=== PATIENT | female | born 1950 | race Caucasian/White ===

== ENCOUNTER 2017-10-15 17:28 | Inpatient (IN) | payer MEDICARE, MEDICAID ==
[~2017-10-15] VITALS: Ht 162.6 cm; Wt 77.6 kg
[~2017-10-15 17:28] MED LIST: LISINOPRIL2.5 MG ORAL; NITRO-BID1 GM TOPIC
[2017-10-15 18:43] LABS: HEMATOCRIT 39.4 % (37.0-47.0); HEMOGLOBIN 10.7 G/DL (12.0-16.0); MEAN CORPUSCULAR VOLUME 115 FL (80-99); PLATELET COUNT 233 K/UL (150-450); RED BLOOD COUNT 3.42 M/UL (4.20-5.40); RED CELL DISTRIBUTION WIDTH 18.6 % (11.6-14.8); WHITE BLOOD COUNT 7.8 K/UL (4.8-10.8)
[2017-10-15 18:44] VITALS: BP 118/57
[2017-10-15 18:59] LABS: ANION GAP 4 mmol/L (5-15); BLOOD UREA NITROGEN 18 mg/dL (7-18); CALCIUM 7.4 MG/DL (8.5-10.1); CARBON DIOXIDE 28 MMOL/L (21-32); CHLORIDE 107 MMOL/L (98-107); POTASSIUM 4.8 MMOL/L (3.5-5.1); SODIUM 139 MMOL/L (136-145)
[2017-10-15 19:13] LABS: ALANINE AMINOTRANSFERASE < 6 U/L (12-78); ALBUMIN 1.5 G/DL (3.4-5.0); ALBUMIN/GLOBULIN RATIO 0.3 (1.0-2.7); ALKALINE PHOSPHATASE 139 U/L (46-116); ASPARTATE AMINO TRANSFERASE 12 U/L (15-37); BILIRUBIN,TOTAL 0.2 MG/DL (0.2-1.0); CKMB < 0.5 NG/ML (0.0-3.6); CREATINE KINASE 20 U/L (26-308)
[2017-10-15 19:47] VITALS: BP 149/60
--- NOTE | 2017-10-15 21:09 | Emergency Room Report ---
History of Present Illness General Chief Complaint: Altered Level of Consciousness Source: Medical Record, EMS Present Illness HPI 67-year-old female ED for evaluation. at bedside states that patient is altered x1 day. Patient has history of end-stage renal disease and gets dialysis. Last dialysis session was yesterday. states that this has happened to the patient before and sometimes she needs a "breathing tube". Patient is on home oxygen. Denies history of COPD. Patient is unable to provide any additional history at this time. Daughter aggravating living factors. No other associated symptoms Allergies: Coded Allergies: SULFA (SULFONAMIDE ANTIBIOTICS) (Verified Allergy, Unknown, 10/06/11) Uncoded Allergies: SULFA (Allergy, Unknown, 10/15/17) Patient History Past Medical History: HTN, CVA/TIA, psych hx, renal disease, dialysis Past Surgical History: none Pertinent Family History: none Social History: Denies: smoking, alcohol use, drug use Now: No Immunizations: UTD Reviewed Nursing Documentation: PMH: Agreed, PSxH: Agreed Nursing Documentation-PMH Past Medical History: No History, Except For Hx Cardiac Problems: Yes - CVA/Stroke Hx Hypertension: Yes Hx Diabetes: Yes History Of Psychiatric Problem: Yes Hx Seizures: Yes Review of Systems All Other Systems: negative except mentioned in HPI Physical Exam Vital Signs Date Time Temp Pulse Resp B/P (MAP) Pulse Ox O2 Delivery O2 Flow Rate FiO2 10/15/17 17:23 99.0 76 18 93/44 99 Room Air 10/15/17 18:30 30 Sp02 EP Interpretation: reviewed, normal General Appearance: no apparent distress, lethargic Head: normocephalic ENT: normal ENT inspection Neck: normal inspection Respiratory: chest non-tender, lungs clear, normal breath sounds, speaking full sentences Cardiovascular #1: regular rate, rhythm, no edema Gastrointestinal: normal inspection Rectal: deferred Genitourinary: no CVA tenderness Musculoskeletal: normal inspection Neurologic: other - lethargic Psychiatric: other - lethargic Skin: normal inspection Lymphatic: normal inspection Procedures Critical Care Time Critical Care Time i. I feel this is a highly complex case requiring extensive working including EKG/Rhythm strip, Xray/CT/US, Blood/urine lab work, repeat exams while in ED, and administration of strong opiates/narcotics for pain control, admission to hospital or close patient follow up. Total time: 30 min bedside evaluation and treatment excludes procedures (EKG). Reason for critical care: hypercapnia, AMS Possible complications: hypotension, hypertension, SD, shock, arrhythmias, metabolic acidosis, end organ damage, respiratory failure. Interventions: Labs, EKG, chest x-ray, CT head, ABG, BiPAP Course: Patient brought in with altered mental status. History of end-stage renal disease. O2 sats low. ABG shows hypercapnia. Patient started on BiPAP. Repeat ABG shows improvement. Chest x-ray shows significant pleural effusion and cardiomegaly. abx given. Consultations: nursing staff, EMS, family Performed by: Dr Sands Tolerated well condition = critical j. because of unstable vital signs this patient had a condition that could potentially threaten life or limb. I feel this is a critical patient who required my full attention while patient was considered critical. Total Critical Care Time excluding procedures was greater than 35 minutes Medical Decision Making Diagnostic Impression: Primary Impression: Hypercapnia Additional Impressions: Altered level of consciousness ESRD (end stage renal disease) on dialysis ER Course Hospital Course 67-year-old female presents with altered level of consciousness. Hypoxic Differential diagnoses include: Pneumonia, UTI, sepsis, CVA/TIA Clinical course Patient placed on stretcher. On lunchroom monitor with hypoxia. After initial history and physical, I ordered labs, IV fluids, EKG, chest x-ray, blood cultures, CT Head, oxygen. Labs - BUN/Cr elevated, no leukocytosis, troponins negative, ABG shows acidosis PCO2 > 80 EKG - NSR, no acute ischemic changes interpreted by me CXR - cardiomegaly, large pleural effusion noted BiPAP started. Repeat ABG shows significant improvement. will defer intubation. Abx given. Case discussed with Dr Hicks and they agreed to admit patient to their service for further care and support I feel this is a highly complex case requiring extensive working including EKG/ Rhythm strip, Xray/CT/US, Blood/urine lab work, repeat exams while in ED, and administration of strong opiates/narcotics for pain control, admission to hospital or close patient follow up. Diagnosis - hypercapnia, ALOC, ESRD on dialysis Patient admitted to [facility] in critical condition Labs Test 10/15/17 17:52 10/15/17 18:30 10/15/17 19:22 Arterial Blood pH 7.150 (7.350-7.450) 7.220 (7.350-7.450) Arterial Blood Partial Pressure CO2 80.2 mmHg (35.0-45.0) 63.8 mmHg (35.0-45.0) Arterial Blood Partial Pressure O2 190.8 mmHg (75.0-100.0) 73.9 mmHg (75.0-100.0) Arterial Blood HCO3 27.8 mmol/L (22.0-26.0) 25.7 mmol/L (22.0-26.0) Arterial Blood Oxygen Saturation 99.0 % (92.0-98.0) 94.2 % (92.0-98.0) Arterial Blood Base Excess -2.3 -2.7 Parth Test Positive Positive White Blood Count 7.8 K/UL (4.8-10.8) Red Blood Count 3.42 M/UL (4.20-5.40) Hemoglobin 10.7 G/DL (12.0-16.0) Hematocrit 39.4 % (37.0-47.0) Mean Corpuscular Volume 115 FL (80-99) Mean Corpuscular Hemoglobin 31.4 PG (27.0-31.0) Mean Corpuscular Hemoglobin Concent 27.2 G/DL (32.0-36.0) Red Cell Distribution Width 18.6 % (11.6-14.8) Platelet Count 233 K/UL (150-450) Mean Platelet Volume 5.7 FL (6.5-10.1) Neutrophils (%) (Auto) % (45.0-75.0) Lymphocytes (%) (Auto) % (20.0-45.0) Monocytes (%) (Auto) % (1.0-10.0) Eosinophils (%) (Auto) % (0.0-3.0) Basophils (%) (Auto) % (0.0-2.0) Differential Total Cells Counted 100 Neutrophils % (Manual) 69 % (45-75) Lymphocytes % (Manual) 25 % (20-45) Monocytes % (Manual) 6 % (1-10) Eosinophils % (Manual) 0 % (0-3) Basophils % (Manual) 0 % (0-2) Band Neutrophils 0 % (0-8) Platelet Estimate Adequate Platelet Morphology Normal Hypochromasia 1+ Anisocytosis 1+ Sodium Level 139 MMOL/L (136-145) Potassium Level 4.8 MMOL/L (3.5-5.1) Chloride Level 107 MMOL/L (98-107) Carbon Dioxide Level 28 MMOL/L (21-32) Anion Gap 4 mmol/L (5-15) Blood Urea Nitrogen 18 mg/dL (7-18) Creatinine 2.0 MG/DL (0.55-1.30) Estimat Glomerular Filtration Rate 24.7 mL/min (>60) Glucose Level 146 MG/DL (74-106) Lactic Acid Level 0.60 mmol/L (0.66-2.22) Calcium Level 7.4 MG/DL (8.5-10.1) Total Bilirubin 0.2 MG/DL (0.2-1.0) Aspartate Amino Transf (AST/SGOT) 12 U/L (15-37) Alanine Aminotransferase (ALT/SGPT) < 6 U/L (12-78) Alkaline Phosphatase 139 U/L (46-116) Total Creatine Kinase 20 U/L (26-308) Creatine Kinase MB < 0.5 NG/ML (0.0-3.6) Creatine Kinase MB Relative Index 2.5 Troponin I 0.008 ng/mL (0.000-0.056) Pro-B-Type Natriuretic Peptide > 19550 pg/mL (0-125) Total Protein 6.2 G/DL (6.4-8.2) Albumin 1.5 G/DL (3.4-5.0) Globulin 4.7 g/dL Albumin/Globulin Ratio 0.3 (1.0-2.7) EKG Diagnostic Results Rate: normal Rhythm: NSR ST Segments: no acute changes ASA given to the pt in ED: No Rhythm Strip Diag. Results EP Interpretation: yes Rhythm: NSR, no PVC's, no ectopy Chest X-Ray Diagnostic Results Chest X-Ray Diagnostic Results : Chest X-Ray Ordered: Yes # of Views/Limited/Complete: 1 View Indication: Other - ams EP Interpretation: Yes Interpretation: no pneumothorax, no acute cardiopulmonary disease, other - large pleural effusion Impression: Other - pleural effusion/CHF Electronically Signed by: Electronically signed by Benji Sands MD CT/MRI/US Diagnostic Results CT/MRI/US Diagnostic Results : Imaging Test Ordered: CT HEad Impression Chronic ischemic changes. No acute process Last Vital Signs Date Time Temp Pulse Resp B/P (MAP) Pulse Ox O2 Delivery O2 Flow Rate FiO2 10/15/17 20:38 75 16 100 Facial 30 10/15/17 19:47 99.0 149/60 Status: improved Disposition: ADMITTED INPATIENT Condition: Critical Referrals: JOJO NOE (PCP) BENJI SANDS M.D. Oct 15, 2017 21:09
[2017-10-15 21:50] VITALS: BP 145/53
[2017-10-15 23:50] VITALS: BP 143/54
[2017-10-16] MEDS ORDERED: Acetaminophen 650 MG SUPP RECTAL PRN ×2
[2017-10-16] MEDS ORDERED: Miralax 17gm pkt ORAL PRN
[2017-10-16] MEDS ORDERED: Ipratropium 0.02% Inh Soln 2.5ml UD HHN PRN
[2017-10-16 01:36] VITALS: BP 146/54
--- NOTE | 2017-10-16 07:13 | History and Physical ---
History of Present Illness General Date patient seen: Oct 16, 2017 Time patient seen: 12:00 Reason for Hospitalization: AMS, CHF Present Illness HPI 66 year old~female~with pmh of ERSD on HD, DM2 (A1C 5.2 on 03/2015), chronic diastolic heart failure, HTN, DM2, BLE DVT (on Eliquis), bipolar d/o, CVA, seizure d/o (on Keppra), bed-bound, multiple episodes of hypercapnic respiratory failure requiring intubation (most recently intubated 02/01/17) who presents with AMS and SOB. History limited as pt altered. Per , pt noted to be increasingly lethargic and more short of breath. noted low BPs at home. No reports of f/c, n/v, d/c, chest pain, abd pain. In ED, pt noted to be fluid overload w/ CXR showing pulmonary edema. ABG showed acute respiratory acidosis w/ pCO2 80s. Pt placed on BiPAP w/ some improvement. Renal consulted for HD. Allergies: Coded Allergies: SULFA (SULFONAMIDE ANTIBIOTICS) (Verified Allergy, Unknown, 10/06/11) Uncoded Allergies: SULFA (Allergy, Unknown, 10/15/17) Medication History Scheduled Amlodipine Besylate (Norvasc), 5 MG ORAL DAILY, (Reported) Apixaban (Eliquis), 5 MG PO BID, (Reported) Aspirin (Aspirin EC), 81 MG ORAL DAILY, (Reported) Carvedilol (Coreg), 3.125 MG ORAL EVERY 12 HOURS, (Reported) Doxycycline Hyclate (Doxycycline Hyclate), 100 MG PO BID, (Reported) Ergocalciferol (Vitamin D2)* (Vitamin D*), 50,000 UNIT ORAL ONCE A WEEK, ( Reported) Levetiracetam In Nacl (Iso-Os) (Levetiraceta-Nacl 1,000 Mg/100), 1,000 MG IV DAILY, (Reported) Levetiracetam* (Levetiracetam*), 500 MG GT BID, (Reported) Levetiracetam* (Levetiracetam*), 500 MG GT BID, (Reported) Levothyroxine Sodium* (Levothyroxine Sodium), 50 MCG PO DAILY, (Reported) Lisinopril* (Lisinopril*), 2.5 MG ORAL DAILY, (Reported) Mupirocin (Mupirocin), 1 GM TP THREE TIMES A DAY, (Reported) Pravastatin Sod* (Pravastatin Sod*), 20 MG ORAL BEDTIME, (Reported) Quetiapine Fumarate (Seroquel), 50 MG ORAL TWICE A DAY, (Reported) Trazodone Hcl* (Desyrel*), 50 MG ORAL BEDTIME, (Reported) Vitamin B Cmplx/Vit C/Folic AC (Nephro-Luz Tablet), 1 TAB ORAL DAILY, (Reported ) Scheduled PRN Hydroxyzine Hcl (Hydroxyzine Hcl), 25 MG PO for Itching, (Reported) Miscellaneous Medications Iron Sucrose Complex (Venofer), 50 MG IV, (Reported) Melatonin (Melatonin), 1 MG PO, (Reported) Nitroglycerin (Nitro-Bid*), 1 INCH TOPIC, (Reported) Patient History Healthcare decision maker Resuscitation status Advanced Directive on File Review of Systems ROS Narrative Unable to obtain as pt altered, lethargic Physical Exam Physical Exam Narrative General: alert, cooperative, no distress, appears stated age Head: normocephalic, without obvious abnormality, atraumatic Eyes: conjunctivae/corneas clear. PERRL, EOM's intact Throat: lips, mucosa, and tongue normal. MMM Neck: supple, symmetrical, trachea midline, and +JVD Lungs: +crackles b/l Heart: regular rate and rhythm, S1, S2 normal, no murmur, click, rub or gallop Abdomen: soft, non-tender, non-distended, bowel sounds normal; no masses or organomegaly Extremities: extremities normal, atraumatic, no cyanosis, 2+ pitting edema Pulses: 2+ and symmetric Skin: skin color, texture, turgor normal; no rashes or lesions Neurologic: grossly normal, no focal deficits Last 24 Hour Vital Signs Date Time Temp Pulse Resp B/P (MAP) Pulse Ox O2 Delivery O2 Flow Rate FiO2 10/16/17 07:10 74 21 Bi-pap 30 10/16/17 07:08 74 21 99 Facial 30 10/16/17 04:45 70 18 100 Facial 30 10/16/17 03:08 68 17 100 Facial 30 10/16/17 01:36 99.0 70 17 146/54 100 30 10/16/17 00:52 69 20 100 Facial 30 10/15/17 23:50 99.0 68 18 143/54 100 30 10/15/17 23:27 65 16 100 Facial 30 10/15/17 21:50 99.0 69 17 145/53 100 30 10/15/17 20:38 75 16 100 Facial 30 10/15/17 19:47 99.0 76 22 149/60 100 Bi-pap 30 10/15/17 19:16 30 10/15/17 18:44 80 24 118/57 98 Bi-pap 30 10/15/17 18:39 80 22 30 10/15/17 18:30 80 22 98 Facial 30 10/15/17 17:23 99.0 76 18 93/44 99 Room Air Intake and Output 10/15/17 10/16/17 19:00 07:00 Intake Total 0 ml Balance 0 ml Intake Oral 0 ml Laboratory Tests Test 10/15/17 17:52 10/15/17 18:30 10/15/17 19:22 10/16/17 05:10 Arterial Blood pH 7.150 (7.350-7.450) 7.220 (7.350-7.450) 7.351 (7.350-7.450) Arterial Blood Partial Pressure CO2 80.2 mmHg (35.0-45.0) *H 63.8 mmHg (35.0-45.0) *H 45.6 mmHg (35.0-45.0) H Arterial Blood Partial Pressure O2 190.8 mmHg (75.0-100.0) H 73.9 mmHg (75.0-100.0) L 91.6 mmHg (75.0-100.0) Arterial Blood HCO3 27.8 mmol/L (22.0-26.0) H 25.7 mmol/L (22.0-26.0) 24.7 mmol/L (22.0-26.0) Arterial Blood Oxygen Saturation 99.0 % (92.0-98.0) H 94.2 % (92.0-98.0) 97.2 % (92.0-98.0) Arterial Blood Base Excess -2.3 -2.7 -1.0 Parth Test Positive Positive Positive White Blood Count 7.8 K/UL (4.8-10.8) Red Blood Count 3.42 M/UL (4.20-5.40) L Hemoglobin 10.7 G/DL (12.0-16.0) L Hematocrit 39.4 % (37.0-47.0) Mean Corpuscular Volume 115 FL (80-99) H Mean Corpuscular Hemoglobin 31.4 PG (27.0-31.0) H Mean Corpuscular Hemoglobin Concent 27.2 G/DL (32.0-36.0) L Red Cell Distribution Width 18.6 % (11.6-14.8) H Platelet Count 233 K/UL (150-450) Mean Platelet Volume 5.7 FL (6.5-10.1) L Neutrophils (%) (Auto) % (45.0-75.0) Lymphocytes (%) (Auto) % (20.0-45.0) Monocytes (%) (Auto) % (1.0-10.0) Eosinophils (%) (Auto) % (0.0-3.0) Basophils (%) (Auto) % (0.0-2.0) Differential Total Cells Counted 100 Neutrophils % (Manual) 69 % (45-75) Lymphocytes % (Manual) 25 % (20-45) Monocytes % (Manual) 6 % (1-10) Eosinophils % (Manual) 0 % (0-3) Basophils % (Manual) 0 % (0-2) Band Neutrophils 0 % (0-8) Platelet Estimate Adequate Platelet Morphology Normal Hypochromasia 1+ Anisocytosis 1+ Sodium Level 139 MMOL/L (136-145) Potassium Level 4.8 MMOL/L (3.5-5.1) Chloride Level 107 MMOL/L (98-107) Carbon Dioxide Level 28 MMOL/L (21-32) Anion Gap 4 mmol/L (5-15) L Blood Urea Nitrogen 18 mg/dL (7-18) Creatinine 2.0 MG/DL (0.55-1.30) H Estimat Glomerular Filtration Rate 24.7 mL/min (>60) Glucose Level 146 MG/DL (74-106) H Lactic Acid Level 0.60 mmol/L (0.66-2.22) L Calcium Level 7.4 MG/DL (8.5-10.1) L Total Bilirubin 0.2 MG/DL (0.2-1.0) Aspartate Amino Transf (AST/SGOT) 12 U/L (15-37) L Alanine Aminotransferase (ALT/SGPT) < 6 U/L (12-78) L Alkaline Phosphatase 139 U/L (46-116) H Total Creatine Kinase 20 U/L (26-308) L Creatine Kinase MB < 0.5 NG/ML (0.0-3.6) Creatine Kinase MB Relative Index 2.5 Troponin I 0.008 ng/mL (0.000-0.056) Pro-B-Type Natriuretic Peptide > 44935 pg/mL (0-125) H Total Protein 6.2 G/DL (6.4-8.2) L Albumin 1.5 G/DL (3.4-5.0) L Globulin 4.7 g/dL Albumin/Globulin Ratio 0.3 (1.0-2.7) L Height (Feet): 5 Height (Inches): 6.00 Weight (Pounds): 155 Medications Current Medications Medications (Trade) Dose Ordered Sig/Eli Route PRN Reason Start Time Stop Time Status Last Admin Dose Admin Acetaminophen (Tylenol) 650 mg Q4H PRN ORAL Mild Pain (Pain Scale 1-3) 10/16/17 00:00 11/15/17 00:00 Acetaminophen (Tylenol) 650 mg Q4H PRN ORAL fever 10/16/17 00:00 11/15/17 00:00 Acetaminophen (Tylenol) 650 mg Q4H PRN RECTAL Mild Pain (Pain Scale 1-3) 10/16/17 00:00 11/15/17 00:00 Acetaminophen (Tylenol) 650 mg Q4H PRN RECTAL fever 10/16/17 00:00 11/15/17 00:00 Dextrose (Dextrose 50%) STAT PRN IV Hypoglycemia 10/16/17 00:00 11/15/17 00:00 Docusate Sodium (Colace) 100 mg EVERY 12 HOURS ORAL 10/16/17 09:00 11/15/17 08:59 Heparin Sodium (Porcine) (Heparin 5000 units/ml) 5,000 units EVERY 12 HOURS SUBQ 10/16/17 09:00 11/15/17 08:59 Ipratropium [place] (Atrovent) 0.5 mcg Q4H PRN HHN Shortness of Breath 10/16/17 00:00 10/21/17 00:00 Ipratropium [place] (Atrovent) 0.5 mcg Q6H HHN 10/16/17 00:00 10/21/17 00:00 Ondansetron HCl (Zofran) 4 mg Q6H PRN IVP Nausea & Vomiting 10/16/17 00:00 11/15/17 00:00 Polyethylene Glycol (Miralax) 17 gm DAILYPRN PRN ORAL Constipation 10/16/17 00:00 11/15/17 00:00 Assessment/Plan Problem List: (1) Acute on chronic diastolic heart failure (2) Acute toxic metabolic encephalopathy (3) Acute hypercapnic respiratory failure ICD Codes: J96.02 - Acute respiratory failure with hypercapnia SNOMED: 742545280 (4) ESRD (end stage renal disease) on dialysis ICD Codes: N18.6 - End stage renal disease; Z99.2 - Dependence on renal dialysis SNOMED: 234613904 Status: stable Assessment/Plan Admit to [facility] Pulm consulted Cont BiPAP and wean as tolerated Trend ABG Rrenal consulted Cont HD per renal for volume removal Trend BMP Strict I/O's, daily weights Cont home meds Pain control, supportive care, bowel regimen DVT Prophylaxis: SCD, Eliquis Code Status: Full Hospital Classification Declaration: Based on this initial evaluation, and depending on the patient's clinical course, I anticipate that this patient will require hospitalization for 2-3 days for AMS, CHF and close respiratory/ hemodynamic monitoring. Disposition: Once the patient is stable to leave the hospital, I anticipate the patient will likely be discharged to the following environment: home with HH vs SNF I spent 70 minutes on this patient's case, and 39 minutes were dedicated to counseling and/or care coordination. Discussed with patient/family, nursing staff, SW/CM, pulm, renal, regarding clinical status, treatment course, and disposition planning. Time of note may not reflect time of encounter. Annalise Marinelli M.D. Oct 16, 2017 07:13
[2017-10-16 07:20] VITALS: BP 162/64
[2017-10-16] MEDS: Ipratropium 0.02% Inh Soln 2.5ml UD HHN SCH ×3 (07:42→20:42)
[2017-10-16] MEDS: Docusate 100mg cap ORAL SCH ×2 (09:00→21:00)
[2017-10-16] MEDS ORDERED: Heparin 5000 units/ml inj SUBQ SCH (09:00)
[2017-10-16 09:40] VITALS: BP 154/66
--- NOTE | 2017-10-16 09:53 | Diagnostic Imaging Report ---
Indication: Altered mental status Technique: Contiguous 5 mm thick transaxial imaging of the head obtained in a Siemens Sensation [address] scanner. Soft tissue and bone windows generated. Automatic Exposure Control was utilized. Total Dose length Product (DLP): 1464.[address] Dose Index Volume (CTDIvol): 70.38 mGy Comparison: none Findings: There is moderate prominence of the ventricles, basal cisterns, and cerebral sulci consistent with atrophy. Moderate, nonspecific, white matter hypoattenuation is noted throughout the brain consistent with chronic small vessel disease. There are old infarcts involving the left occipital lobe, right posterior parietal lobe as well as a small cystic foci consistent with lacunar infarcts in the basal ganglia regions bilaterally and fitzpatrick radiata. There is no midline shift, edema, acute hemorrhage, mass effect, or abnormal extra-axial fluid collections. Bones and extra osseous soft tissues are unremarkable. Impression: No acute intracranial bleed, mass effect or edema. Multiple old infarcts Moderate atrophy of the brain. Evidence of chronic small vessel disease involving white matter tracts. [facility] has communicated the preliminary results to the Emergency Department. Their findings are largely concordant with this report. The CT scanner at [facility] is accredited by the [employer] and the scans are performed using dose optimization techniques as appropriate to a performed exam including Automatic Exposure control.
--- NOTE | 2017-10-16 11:35 | Diagnostic Imaging Report ---
Indication: Dyspnea Comparison: 10/06/2011 A single view chest radiograph was obtained. Findings: There is evidence of a moderate right pleural effusion. Interstitial edema is present. The heart is enlarged. Parenchymal disease involving the right lower lobe is not excludable. There is undoubtedly some atelectasis present. The bones are osteopenic. IMPRESSION: Congestive heart failure/interstitial edema Moderate right pleural effusion.
[2017-10-16] MEDS ORDERED: HYDROXYZINE HCL25 M1 PO (12:33)
[2017-10-16] MEDS ORDERED: LEVOTHYROXINE200 MCG PO (12:34)
[2017-10-16] MEDS ORDERED: NEPHROVITE1 TAB ORAL (12:38)
[2017-10-16] MEDS ORDERED: NORVASC5 MG ORAL (12:38)
[2017-10-16] MEDS ORDERED: ELIQUIS5 MG PO (12:43)
[2017-10-16] MEDS ORDERED: ASPIRIN-LOW81 MG ORAL (12:44)
[2017-10-16] MEDS ORDERED: COREG3.125 MG ORAL (12:44)
[2017-10-16] MEDS ORDERED: VITAMIN D250000 UNI1 ORAL (12:46)
[2017-10-16] MEDS ORDERED: LEVETIRACE100 MG/1 M GT ×2 (12:46→13:11)
[2017-10-16] MEDS ORDERED: VENOFER50 MG/2.5 IV (12:46)
[2017-10-16] MEDS ORDERED: MELATONIN1 M2 PO (13:11)
[2017-10-16] MEDS ORDERED: PRAVASTATIN SOD20 M1 ORAL (13:11)
[2017-10-16] MEDS ORDERED: LEVETIRACE1000 MG/10 IV (13:11)
[2017-10-16] MEDS ORDERED: SEROQUEL50 MG ORAL (13:11)
[2017-10-16] MEDS ORDERED: TRAZODONE HCL50 MG ORAL (13:11)
[2017-10-16] MEDS: levETIRAcetam 500mg/5ml Liquid GT SCH ×2 (13:30→21:02)
[2017-10-16] MEDS: Lisinopril 2.5mg tab ORAL SCH (13:30)
[2017-10-16] MEDS: Nephrovite tab (Rena-Vite) ORAL SCH (13:30)
[2017-10-16] MEDS: Aspirin EC 81mg tab ORAL SCH (15:02)
[2017-10-16 17:00] VITALS: BP 158/86
[2017-10-16] MEDS: Eliquis 2.5mg tablet ORAL SCH (18:00)
[2017-10-16 20:00] VITALS: BP 150/75
[2017-10-17] VITALS: BP 150/67
[2017-10-17] MEDS: Ipratropium 0.02% Inh Soln 2.5ml UD HHN SCH ×4 (01:00→20:50)
[2017-10-17 04:00] VITALS: BP 149/76
[2017-10-17 04:41] LABS: HEMATOCRIT 38.6 % (37.0-47.0); HEMOGLOBIN 11.2 G/DL (12.0-16.0); MEAN CORPUSCULAR VOLUME 115 FL (80-99); PLATELET COUNT 227 K/UL (150-450); RED BLOOD COUNT 3.36 M/UL (4.20-5.40); RED CELL DISTRIBUTION WIDTH 18.7 % (11.6-14.8); WHITE BLOOD COUNT 11.1 K/UL (4.8-10.8)
[2017-10-17 05:17] LABS: % IRON SATURATION 27 % (15-50); IRON 21 ug/dL (50-175); TOTAL IRON BINDING CAPACITY 78 ug/dL (250-450)
[2017-10-17 05:22] LABS: GAMMA GLUTAMYL TRANSPEPTIDASE 12 U/L (5-85); PHOSPHORUS 2.7 MG/DL (2.5-4.9)
[2017-10-17 05:35] LABS: ALANINE AMINOTRANSFERASE < 6 U/L (12-78); ALBUMIN 1.6 G/DL (3.4-5.0); ALBUMIN/GLOBULIN RATIO 0.3 (1.0-2.7); ALKALINE PHOSPHATASE 143 U/L (46-116); ANION GAP 12 mmol/L (5-15); ASPARTATE AMINO TRANSFERASE 13 U/L (15-37); BILIRUBIN,TOTAL 0.5 MG/DL (0.2-1.0); BLOOD UREA NITROGEN 26 mg/dL (7-18); CALCIUM 7.8 MG/DL (8.5-10.1); CARBON DIOXIDE 25 MMOL/L (21-32); CHLORIDE 106 MMOL/L (98-107); CHOLESTEROL 121 MG/DL (< 200); CREATININE 2.4 MG/DL (0.55-1.30); FERRITIN 1357 NG/ML (8-388); HDL CHOLESTEROL 52 MG/DL (40-60); POTASSIUM 4.7 MMOL/L (3.5-5.1); SODIUM 143 MMOL/L (136-145); TRIGLYCERIDES 79 MG/DL (30-150)
[2017-10-17 08:00] VITALS: BP 162/82
[2017-10-17] MEDS: levETIRAcetam 500mg/5ml Liquid GT SCH ×2 (09:39→18:12)
[2017-10-17] MEDS: Docusate 100mg cap ORAL SCH ×2 (09:39→21:07)
[2017-10-17] MEDS: Eliquis 2.5mg tablet ORAL SCH ×2 (09:39→18:13)
[2017-10-17] MEDS: Aspirin EC 81mg tab ORAL SCH (09:39)
[2017-10-17] MEDS: Nephrovite tab (Rena-Vite) ORAL SCH (09:39)
[2017-10-17] MEDS: Lisinopril 2.5mg tab ORAL SCH ×2 (09:43→18:14)
[2017-10-17] MEDS ORDERED: MUPIROCIN1 GM TP (10:59)
[2017-10-17] MEDS ORDERED: DOXYCYCLINE HY100 M2 PO (10:59)
[2017-10-17 12:00] VITALS: BP 139/72
--- NOTE | 2017-10-17 15:38 | Consultation ---
Consult Note Consult Note asked to eval for dialysis management HPI 67-year-old female ED for evaluation. at bedside states that patient is altered x1 day. Patient has history of end-stage renal disease and gets dialysis. Last dialysis session was yesterday. states that this has happened to the patient before and sometimes she needs a "breathing tube". Patient is on home oxygen. Denies history of COPD. Patient is unable to provide any additional history at this time. Daughter aggravating living factors. No other associated symptoms SULFA (Allergy, Unknown, 10/15/17) Past Medical History: HTN, CVA/TIA, psych hx, renal disease, dialysis Past Medical History: No History, Except For Hx Cardiac Problems: Yes - CVA/Stroke Hx Hypertension: Yes Hx Diabetes: Yes History Of Psychiatric Problem: Yes Hx Seizures: Yes examined data reviewed discussed with RN . Assessment/Plan ESRD CHF Anemia of CKD DM Encephalopathy HypoAlbuminemai Sz disorder HypoThyroidism Plan: HD and UF Adjust BP and BS optimize cardiac status check UA and c/s per orders DEBRA FERNANDES Oct 17, 2017 15:38
[2017-10-17 16:00] VITALS: BP 144/71
[2017-10-17 20:00] VITALS: BP 150/72
[2017-10-17 20:11] LABS: APPEARANCE,URINE CLOUDY; BILIRUBIN, URINE NEGATIVE (NEGATIVE); COLOR,URINE PALE YELLOW; GLUCOSE, URINE (UA) NEGATIVE (NEGATIVE); KETONES,URINE 1+ (NEGATIVE); LEUKOCYTE ESTERASE ,URINE 3+ (NEGATIVE); NITRITE,URINE NEGATIVE (NEGATIVE); PH,URINE 7 (4.5-8.0); PROTEIN,URINE 4+ (NEGATIVE); UROBILINOGEN,URINE NORMAL MG/DL (0.0-1.0)
--- NOTE | 2017-10-17 20:19 | General Progress Note ---
Assessment/Plan Problem List: (1) Acute on chronic diastolic heart failure (2) Acute toxic metabolic encephalopathy (3) Acute hypercapnic respiratory failure ICD Codes: J96.02 - Acute respiratory failure with hypercapnia SNOMED: 938239451 (4) ESRD (end stage renal disease) on dialysis ICD Codes: N18.6 - End stage renal disease; Z99.2 - Dependence on renal dialysis SNOMED: 433595598 Status: stable Assessment/Plan Pulm consulted Now off BiPAP Trend ABG Renal consulted Cont HD per renal for volume removal. Last HD 10/17 AM Trend BMP Strict I/O's, daily weights Cont home meds Pain control, supportive care, bowel regimen DVT Prophylaxis: SCD, Eliquis Code Status: Full Hospital Classification Declaration: Based on this initial evaluation, and depending on the patient's clinical course, I anticipate that this patient will require hospitalization for 1-2 days for AMS, CHF and close respiratory/ hemodynamic monitoring. Disposition: Once the patient is stable to leave the hospital, I anticipate the patient will likely be discharged to the following environment: home with HH vs SNF I spent 70 minutes on this patient's case, and 39 minutes were dedicated to counseling and/or care coordination. Discussed with patient/family, nursing staff, SW/CM, pulm, renal, regarding clinical status, treatment course, and disposition planning. Time of note may not reflect time of encounter. Subjective Date patient seen: Oct 17, 2017 Time patient seen: 14:00 ROS Limited/Unobtainable: No Constitutional: Reports: no symptoms HEENT: Reports: no symptoms Cardiovascular: Reports: no symptoms Respiratory: Reports: shortness of breath Gastrointestinal/Abdominal: Reports: no symptoms Genitourinary: Reports: no symptoms Neurologic/Psychiatric: Reports: no symptoms Endocrine: Reports: no symptoms Hematologic/Lymphatic: Reports: no symptoms Allergies: Coded Allergies: SULFA (SULFONAMIDE ANTIBIOTICS) (Verified Allergy, Unknown, 10/06/11) Uncoded Allergies: SULFA (Allergy, Unknown, 10/15/17) All Systems: reviewed and negative except above Subjective No acute o/n events s/p HD this AM Per at bedside pt's mental status has improved Pt now off BiPAP, breathing more comfortably. Denies SOB, chest pain, f/c, n/v, d/c, abd pain Objective Last 24 Hour Vital Signs Date Time Temp Pulse Resp B/P (MAP) Pulse Ox O2 Delivery O2 Flow Rate FiO2 10/17/17 18:14 144/71 10/17/17 18:14 81 144/71 10/17/17 16:00 83 10/17/17 16:00 98.4 81 18 144/71 97 Bi-pap 30 10/17/17 13:15 Simple Mask 10/17/17 12:50 80 19 99 Non-Rebreather 100 10/17/17 12:45 80 20 99 Non-Rebreather 100 10/17/17 12:00 77 10/17/17 12:00 98.4 78 18 139/72 97 Bi-pap 30 10/17/17 12:00 30 10/17/17 09:43 162/82 10/17/17 09:39 82 162/82 10/17/17 09:38 82 162/82 10/17/17 09:15 Simple Mask 10/17/17 08:45 82 22 97 Facial 30 10/17/17 08:00 76 10/17/17 08:00 30 10/17/17 08:00 97.4 79 19 162/82 97 Bi-pap 30 10/17/17 07:05 78 20 91 Bi-pap 30 10/17/17 07:05 78 19 96 Facial 30 10/17/17 07:05 80 19 98 Bi-pap 30 10/17/17 05:30 80 15 94 Facial 30 10/17/17 04:00 74 10/17/17 04:00 30 10/17/17 04:00 97.7 77 20 149/76 100 Bi-pap 30 10/17/17 03:45 82 15 95 Facial 30 10/17/17 03:45 Bi-pap 10/17/17 03:45 Bi-pap 10/17/17 00:00 98.0 75 20 150/67 99 Bi-pap 30 10/17/17 00:00 30 10/17/17 00:00 71 10/16/17 23:41 79 14 94 Facial 30 10/16/17 21:10 84 20 92 Facial 30 10/16/17 21:05 80 150/70 Intake and Output 10/16/17 10/17/17 19:00 07:00 Intake Total 60 ml Balance 60 ml Intake Oral 60 ml # Voids 2 # Bowel Movements 2 Laboratory Tests 10/17/17 03:15: White Blood Count 11.1H, Red Blood Count 3.36L, Hemoglobin 11.2L, Hematocrit 38.6, Mean Corpuscular Volume 115H, Mean Corpuscular Hemoglobin 33.3H, Mean Corpuscular Hemoglobin Concent 29.0L, Red Cell Distribution Width 18.7H, Platelet Count 227, Mean Platelet Volume 6.0L, Neutrophils (%) (Auto) , Lymphocytes (%) (Auto) , Monocytes (%) (Auto) , Eosinophils (%) (Auto) , Basophils (%) (Auto) , Differential Total Cells Counted 100, Neutrophils % ( Manual) 81H, Lymphocytes % (Manual) 18L, Monocytes % (Manual) 1, Eosinophils % ( Manual) 0, Basophils % (Manual) 0, Band Neutrophils 0, Platelet Estimate Adequate, Platelet Morphology Normal, Sodium Level 143, Potassium Level 4.7, Chloride Level 106, Carbon Dioxide Level 25, Anion Gap 12, Blood Urea Nitrogen 26H, Creatinine 2.4H, Estimat Glomerular Filtration Rate 20.0, Glucose Level 62L , Hemoglobin A1c 4.6, Uric Acid 4.4, Calcium Level 7.8L, Phosphorus Level 2.7, Magnesium Level 1.9, Iron Level 21L, Total Iron Binding Capacity 78L, Percent Iron Saturation 27, Unsaturated Iron Binding 57L, Ferritin 1357H, Total Bilirubin 0.5, Gamma Glutamyl Transpeptidase 12, Aspartate Amino Transf (AST/ SGOT) 13L, Alanine Aminotransferase (ALT/SGPT) < 6L, Alkaline Phosphatase 143H, Troponin I 0.020, C-Reactive Protein, Quantitative 13.1H, Pro-B-Type Natriuretic Peptide > 48990R, Total Protein 6.6, Albumin 1.6L, Globulin 5.0, Albumin/Globulin Ratio 0.3L, Triglycerides Level 79, Cholesterol Level 121, LDL Cholesterol 57, HDL Cholesterol 52, Cholesterol/HDL Ratio 2.3L, Vitamin B12 Level 884, Folate 19.0, Thyroid Stimulating Hormone (TSH) 9.401H 10/17/17 08:42: Arterial Blood pH 7.393, Arterial Blood Partial Pressure CO2 36.2, Arterial Blood Partial Pressure O2 126.7H, Arterial Blood HCO3 21.6L, Arterial Blood Oxygen Saturation 98.5H, Arterial Blood Base Excess -2.9, Parth Test Positive 10/17/17 18:40: Urine Color Pale yellow, Urine Appearance Cloudy, Urine pH 7, Urine Specific [place] 1.010, Urine Protein 4+H, Urine Glucose (UA) Negative, Urine Ketones 1+H , Urine Occult Blood 4+H, Urine Nitrite Negative, Urine Bilirubin Negative, Urine Urobilinogen Normal, Urine Leukocyte Esterase 3+H, Urine RBC [Pending], Urine WBC [Pending], Urine Squamous Epithelial Cells [Pending], Urine Bacteria [ Pending] Height (Feet): 5 Height (Inches): 4.00 Weight (Pounds): 155 Objective General: alert, cooperative, no distress, appears stated age Head: normocephalic, without obvious abnormality, atraumatic Eyes: conjunctivae/corneas clear. PERRL, EOM's intact Throat: lips, mucosa, and tongue normal. MMM Neck: supple, symmetrical, trachea midline, and +JVD Lungs: +crackles b/l Heart: regular rate and rhythm, S1, S2 normal, no murmur, click, rub or gallop Abdomen: soft, non-tender, non-distended, bowel sounds normal; no masses or organomegaly Extremities: extremities normal, atraumatic, no cyanosis, 2+ pitting edema Pulses: 2+ and symmetric Skin: skin color, texture, turgor normal; no rashes or lesions Neurologic: grossly normal, no focal deficits Annalise Marinelli M.D. Oct 17, 2017 20:19
--- NOTE | 2017-10-17 23:36 | Consultation ---
History of Present Illness General Date patient seen: Oct 17, 2017 Chief Complaint: Altered Level of Consciousness Reason for Consultation: respiratory failure Present Illness Allergies: Coded Allergies: SULFA (SULFONAMIDE ANTIBIOTICS) (Verified Allergy, Unknown, 10/06/11) Uncoded Allergies: SULFA (Allergy, Unknown, 10/15/17) Medication History Scheduled Amlodipine Besylate (Norvasc), 5 MG ORAL DAILY, (Reported) Apixaban (Eliquis), 5 MG PO BID, (Reported) Aspirin (Aspirin EC), 81 MG ORAL DAILY, (Reported) Carvedilol (Coreg), 3.125 MG ORAL EVERY 12 HOURS, (Reported) Doxycycline Hyclate (Doxycycline Hyclate), 100 MG PO BID, (Reported) Ergocalciferol (Vitamin D2)* (Vitamin D*), 50,000 UNIT ORAL ONCE A WEEK, ( Reported) Levetiracetam In Nacl (Iso-Os) (Levetiraceta-Nacl 1,000 Mg/100), 1,000 MG IV DAILY, (Reported) Levetiracetam* (Levetiracetam*), 500 MG GT BID, (Reported) Levetiracetam* (Levetiracetam*), 500 MG GT BID, (Reported) Levothyroxine Sodium* (Levothyroxine Sodium), 50 MCG PO DAILY, (Reported) Lisinopril* (Lisinopril*), 2.5 MG ORAL DAILY, (Reported) Mupirocin (Mupirocin), 1 GM TP THREE TIMES A DAY, (Reported) Pravastatin Sod* (Pravastatin Sod*), 20 MG ORAL BEDTIME, (Reported) Quetiapine Fumarate (Seroquel), 50 MG ORAL TWICE A DAY, (Reported) Trazodone Hcl* (Desyrel*), 50 MG ORAL BEDTIME, (Reported) Vitamin B Cmplx/Vit C/Folic AC (Nephro-Luz Tablet), 1 TAB ORAL DAILY, (Reported ) Scheduled PRN Hydroxyzine Hcl (Hydroxyzine Hcl), 25 MG PO for Itching, (Reported) Miscellaneous Medications Iron Sucrose Complex (Venofer), 50 MG IV, (Reported) Melatonin (Melatonin), 1 MG PO, (Reported) Nitroglycerin (Nitro-Bid*), 1 INCH TOPIC, (Reported) Patient History Healthcare decision maker Jose Guadalupe Chavezshyla -spouse Resuscitation status Full Code Advanced Directive on File No Patient History Narrative family hx unobtainable social hx currently negative for tobacco etoh and drugs lives in snf [facility] pt admitted iwth increasing shortness of breath, cough and hypoxemia. intially in the ICu, placed on bipap, sp HD with fluid removal, now off bipap, on NC awake, tolerating modified po and no acute distress. follows simple commands on supplemental o2., Past Medical/Surgical History Past Medical/Surgical History: (1) ESRD (end stage renal disease) on dialysis (2) Hypercapnia (3) Altered level of consciousness (4) Acute on chronic diastolic heart failure (5) Acute hypercapnic respiratory failure (6) Acute toxic metabolic encephalopathy Review of Systems ROS Narrative pt is a poor historian and answers are inconsistent Physical Exam General Appearance: cachetic HEENT: atraumatic, anicteric Neck: non-tender, supple Respiratory/Chest: crackles/rales Cardiovascular/Chest: normal rate, systolic murmur Abdomen: non tender, soft Skin Exam: normal pigmentation Neurologic: no motor/sensory deficits, responsive Last 24 Hour Vital Signs Date Time Temp Pulse Resp B/P (MAP) Pulse Ox O2 Delivery O2 Flow Rate FiO2 10/17/17 23:09 78 22 97 Facial 30 10/17/17 21:07 81 150/72 10/17/17 21:03 81 18 97 Nasal Cannula 5.0 40 10/17/17 20:49 81 18 97 Bi-pap 5.0 40 10/17/17 20:49 40 10/17/17 20:00 81 10/17/17 20:00 97.5 83 16 150/72 98 Nasal Cannula 4.0 10/17/17 18:14 144/71 10/17/17 18:14 81 144/71 10/17/17 16:00 83 10/17/17 16:00 98.4 81 18 144/71 97 Bi-pap 30 10/17/17 13:15 Simple Mask 10/17/17 12:50 80 19 99 Non-Rebreather 100 10/17/17 12:45 80 20 99 Non-Rebreather 100 10/17/17 12:00 77 10/17/17 12:00 98.4 78 18 139/72 97 Bi-pap 30 10/17/17 12:00 30 10/17/17 09:43 162/82 10/17/17 09:39 82 162/82 10/17/17 09:38 82 162/82 10/17/17 09:15 Simple Mask 10/17/17 08:45 82 22 97 Facial 30 10/17/17 08:00 76 10/17/17 08:00 30 10/17/17 08:00 97.4 79 19 162/82 97 Bi-pap 30 10/17/17 07:05 78 20 91 Bi-pap 30 10/17/17 07:05 78 19 96 Facial 30 10/17/17 07:05 80 19 98 Bi-pap 30 10/17/17 05:30 80 15 94 Facial 30 10/17/17 04:00 74 10/17/17 04:00 30 10/17/17 04:00 97.7 77 20 149/76 100 Bi-pap 30 10/17/17 03:45 82 15 95 Facial 30 10/17/17 03:45 Bi-pap 10/17/17 03:45 Bi-pap 10/17/17 00:00 98.0 75 20 150/67 99 Bi-pap 30 10/17/17 00:00 30 10/17/17 00:00 71 10/16/17 23:41 79 14 94 Facial 30 Intake and Output 10/16/17 10/17/17 19:00 07:00 Intake Total 60 ml Balance 60 ml Intake Oral 60 ml # Voids 2 # Bowel Movements 2 Laboratory Tests Test 10/17/17 03:15 10/17/17 08:42 10/17/17 18:40 White Blood Count 11.1 K/UL (4.8-10.8) H Red Blood Count 3.36 M/UL (4.20-5.40) L Hemoglobin 11.2 G/DL (12.0-16.0) L Hematocrit 38.6 % (37.0-47.0) Mean Corpuscular Volume 115 FL (80-99) H Mean Corpuscular Hemoglobin 33.3 PG (27.0-31.0) H Mean Corpuscular Hemoglobin Concent 29.0 G/DL (32.0-36.0) L Red Cell Distribution Width 18.7 % (11.6-14.8) H Platelet Count 227 K/UL (150-450) Mean Platelet Volume 6.0 FL (6.5-10.1) L Neutrophils (%) (Auto) % (45.0-75.0) Lymphocytes (%) (Auto) % (20.0-45.0) Monocytes (%) (Auto) % (1.0-10.0) Eosinophils (%) (Auto) % (0.0-3.0) Basophils (%) (Auto) % (0.0-2.0) Differential Total Cells Counted 100 Neutrophils % (Manual) 81 % (45-75) H Lymphocytes % (Manual) 18 % (20-45) L Monocytes % (Manual) 1 % (1-10) Eosinophils % (Manual) 0 % (0-3) Basophils % (Manual) 0 % (0-2) Band Neutrophils 0 % (0-8) Platelet Estimate Adequate Platelet Morphology Normal Sodium Level 143 MMOL/L (136-145) Potassium Level 4.7 MMOL/L (3.5-5.1) Chloride Level 106 MMOL/L (98-107) Carbon Dioxide Level 25 MMOL/L (21-32) Anion Gap 12 mmol/L (5-15) Blood Urea Nitrogen 26 mg/dL (7-18) H Creatinine 2.4 MG/DL (0.55-1.30) H Estimat Glomerular Filtration Rate 20.0 mL/min (>60) Glucose Level 62 MG/DL (74-106) L Hemoglobin A1c 4.6 % (4.3-6.0) Uric Acid 4.4 MG/DL (2.6-7.2) Calcium Level 7.8 MG/DL (8.5-10.1) L Phosphorus Level 2.7 MG/DL (2.5-4.9) Magnesium Level 1.9 MG/DL (1.8-2.4) Iron Level 21 ug/dL (50-175) L Total Iron Binding Capacity 78 ug/dL (250-450) L Percent Iron Saturation 27 % (15-50) Unsaturated Iron Binding 57 ug/dL (112-346) L Ferritin 1357 NG/ML (8-388) H Total Bilirubin 0.5 MG/DL (0.2-1.0) Gamma Glutamyl Transpeptidase 12 U/L (5-85) Aspartate Amino Transf (AST/SGOT) 13 U/L (15-37) L Alanine Aminotransferase (ALT/SGPT) < 6 U/L (12-78) L Alkaline Phosphatase 143 U/L (46-116) H Troponin I 0.020 ng/mL (0.000-0.056) C-Reactive Protein, Quantitative 13.1 mg/dL (0.00-0.90) H Pro-B-Type Natriuretic Peptide > 92118 pg/mL (0-125) H Total Protein 6.6 G/DL (6.4-8.2) Albumin 1.6 G/DL (3.4-5.0) L Globulin 5.0 g/dL Albumin/Globulin Ratio 0.3 (1.0-2.7) L Triglycerides Level 79 MG/DL (30-150) Cholesterol Level 121 MG/DL (< 200) LDL Cholesterol 57 mg/dL (<100) HDL Cholesterol 52 MG/DL (40-60) Cholesterol/HDL Ratio 2.3 (3.3-4.4) L Vitamin B12 Level 884 PG/ML (193-986) Folate 19.0 NG/ML (8.6-58.9) Thyroid Stimulating Hormone (TSH) 9.401 uiU/mL (0.358-3.740) Arterial Blood pH 7.393 (7.350-7.450) Arterial Blood Partial Pressure CO2 36.2 mmHg (35.0-45.0) Arterial Blood Partial Pressure O2 126.7 mmHg (75.0-100.0) H Arterial Blood HCO3 21.6 mmol/L (22.0-26.0) L Arterial Blood Oxygen Saturation 98.5 % (92.0-98.0) H Arterial Blood Base Excess -2.9 Parth Test Positive Urine Color Pale yellow Urine Appearance Cloudy Urine pH 7 (4.5-8.0) Urine Specific [place] 1.010 (1.005-1.035) Urine Protein 4+ (NEGATIVE) H Urine Glucose (UA) Negative (NEGATIVE) Urine Ketones 1+ (NEGATIVE) H Urine Occult Blood 4+ (NEGATIVE) H Urine Nitrite Negative (NEGATIVE) Urine Bilirubin Negative (NEGATIVE) Urine Urobilinogen Normal MG/DL (0.0-1.0) Urine Leukocyte Esterase 3+ (NEGATIVE) H Urine RBC 10-15 /HPF (0 - 2) H Urine WBC 40-60 /HPF (0 - 2) H Urine Squamous Epithelial Cells Few /LPF (NONE/OCC) Urine Bacteria Many /HPF (NONE) H Height (Feet): 5 Height (Inches): 4.00 Weight (Pounds): 155 Medications Current Medications Medications (Trade) Dose Ordered Sig/Eli Route PRN Reason Start Time Stop Time Status Last Admin Dose Admin Acetaminophen (Tylenol) 650 mg Q4H PRN ORAL Mild Pain (Pain Scale 1-3) 10/16/17 00:00 11/15/17 00:00 10/17/17 18:14 Acetaminophen (Tylenol) 650 mg Q4H PRN ORAL fever 10/16/17 00:00 11/15/17 00:00 Acetaminophen (Tylenol) 650 mg Q4H PRN RECTAL fever 10/16/17 00:00 11/15/17 00:00 Amlodipine Besylate (Norvasc) 5 mg BID ORAL 10/17/17 18:00 11/15/17 13:29 10/17/17 18:14 Apixaban (Eliquis) 5 mg BID ORAL 10/16/17 18:00 11/15/17 17:59 10/17/17 18:13 Aspirin (Ecotrin) 81 mg DAILY ORAL 10/16/17 13:30 11/15/17 13:29 10/17/17 09:39 Carvedilol (Coreg) 3.125 mg EVERY 12 HOURS ORAL 10/16/17 13:30 11/15/17 13:29 10/17/17 21:07 Dextrose (Dextrose 50%) STAT PRN IV Hypoglycemia 10/16/17 00:00 11/15/17 00:00 Docusate Sodium (Colace) 100 mg EVERY 12 HOURS ORAL 10/16/17 09:00 11/15/17 08:59 10/17/17 21:07 Ipratropium [place] (Atrovent) 0.5 mcg Q4H PRN HHN Shortness of Breath 10/16/17 00:00 10/21/17 00:00 Ipratropium [place] (Atrovent) 0.5 mcg Q6HRT HHN 10/16/17 19:00 10/21/17 18:59 10/17/17 20:50 Levetiracetam (Keppra) 500 mg BID GT 10/16/17 13:30 11/15/17 13:29 10/17/17 18:12 Levothyroxine Sodium (Synthroid) 50 mcg DAILY@0630 ORAL 10/17/17 06:30 11/16/17 06:29 10/17/17 06:35 Lisinopril (Zestril) 2.5 mg BID ORAL 10/17/17 18:00 11/15/17 13:29 10/17/17 18:14 Ondansetron HCl (Zofran) 4 mg Q6H PRN IVP Nausea & Vomiting 10/16/17 00:00 11/15/17 00:00 Polyethylene Glycol (Miralax) 17 gm DAILYPRN PRN ORAL Constipation 10/16/17 00:00 11/15/17 00:00 Vitamin B Complex/ Vit C/Folic Acid (Nephrovite) 1 tab DAILY ORAL 10/16/17 13:30 11/15/17 13:29 10/17/17 09:39 Objective Narrative CXfr with right effusion Assessment/Plan Assessment/Plan respiratory distress chf RF on HD volume OL Pleural effusion right hypoxemia continue negative io with HD may require thoracentsis prn bipap prn nebs abx neuro checks swallow eval supplemental o2 as needed pt JOSEPH LE DO Oct 17, 2017 23:36
[2017-10-18] VITALS: BP 148/81
[2017-10-18] MEDS: Ipratropium 0.02% Inh Soln 2.5ml UD HHN SCH ×4 (01:41→18:55)
[2017-10-18 04:00] VITALS: BP 147/70
[2017-10-18 05:50] LABS: PHOSPHORUS 1.8 MG/DL (2.5-4.9)
[2017-10-18 08:00] VITALS: BP 134/73
[2017-10-18] MEDS: Docusate 100mg cap ORAL SCH ×2 (08:39→20:59)
[2017-10-18] MEDS: Eliquis 2.5mg tablet ORAL SCH ×2 (09:16→17:30)
[2017-10-18] MEDS: Aspirin EC 81mg tab ORAL SCH (09:17)
[2017-10-18] MEDS: Nephrovite tab (Rena-Vite) ORAL SCH (09:17)
[2017-10-18] MEDS: levETIRAcetam 500mg/5ml Liquid GT SCH ×2 (09:17→17:27)
[2017-10-18] MEDS: Lisinopril 2.5mg tab ORAL SCH ×2 (09:17→17:30)
--- NOTE | 2017-10-18 11:33 | Nephrology Progress Note ---
Assessment/Plan Problem List: (1) ESRD (end stage renal disease) on dialysis (2) Acute on chronic diastolic heart failure (3) Acute hypercapnic respiratory failure (4) Acute toxic metabolic encephalopathy Assessment ESRD CHF Anemia of CKD DM Encephalopathy HypoAlbuminemai Sz disorder HypoThyroidism Plan Plan: HD and UF done 10/17 Adjust BP and BS optimize cardiac status check UA and c/s Mag and Phos supplement per orders Subjective ROS Limited/Unobtainable: No Constitutional: Reports: malaise, weakness Objective Objective Last 24 Hour Vital Signs Date Time Temp Pulse Resp B/P (MAP) Pulse Ox O2 Delivery O2 Flow Rate FiO2 10/18/17 10:09 98.0 10/18/17 09:17 134/73 10/18/17 09:17 83 134/73 10/18/17 09:17 83 134/73 10/18/17 08:00 98.0 83 18 134/73 99 Bi-pap 30 10/18/17 08:00 75 10/18/17 07:59 76 20 98 Nasal Cannula 4.0 10/18/17 07:55 30 10/18/17 07:54 83 23 Bi-pap 30 10/18/17 07:49 83 23 99 Bi-pap 30 10/18/17 07:10 83 23 99 Facial 30 10/18/17 04:00 75 10/18/17 04:00 30 10/18/17 04:00 97.8 76 18 147/70 100 Bi-pap 30 10/18/17 03:57 78 22 98 Facial 5.0 30 10/18/17 01:50 74 22 99 Bi-pap 30 10/18/17 01:40 30 10/18/17 01:39 74 22 99 Bi-pap 30 10/18/17 01:37 74 22 99 Facial 5.0 30 10/18/17 00:00 97.7 74 16 148/81 99 Bi-pap 30 10/18/17 00:00 71 10/18/17 00:00 30 10/17/17 23:09 78 22 97 Facial 30 10/17/17 22:00 30 10/17/17 21:07 81 150/72 10/17/17 21:03 81 18 97 Nasal Cannula 5.0 40 10/17/17 20:49 81 18 97 Bi-pap 5.0 40 10/17/17 20:49 40 10/17/17 20:00 81 10/17/17 20:00 97.5 83 16 150/72 98 Nasal Cannula 4.0 10/17/17 18:14 144/71 10/17/17 18:14 81 144/71 10/17/17 16:00 83 10/17/17 16:00 98.4 81 18 144/71 97 Bi-pap 30 10/17/17 13:15 Simple Mask 10/17/17 12:50 80 19 99 Non-Rebreather 100 10/17/17 12:45 80 20 99 Non-Rebreather 100 10/17/17 12:00 77 10/17/17 12:00 98.4 78 18 139/72 97 Bi-pap 30 10/17/17 12:00 30 Intake and Output 10/17/17 10/18/17 19:00 07:00 Intake Total 640 ml 120 ml Output Total 2200 ml 30 ml Balance -1560 ml 90 ml Intake Oral 640 ml 120 ml Output Urine Total 30 ml Hemodialysis UF 2200 ml # Voids 2 # Bowel Movements 2 3 Laboratory Tests 10/17/17 18:40: Urine Color Pale yellow, Urine Appearance Cloudy, Urine pH 7, Urine Specific [place] 1.010, Urine Protein 4+H, Urine Glucose (UA) Negative, Urine Ketones 1+H , Urine Occult Blood 4+H, Urine Nitrite Negative, Urine Bilirubin Negative, Urine Urobilinogen Normal, Urine Leukocyte Esterase 3+H, Urine RBC 10-15H, Urine WBC 40-60H, Urine Squamous Epithelial Cells Few, Urine Bacteria ManyH 10/18/17 03:00: Phosphorus Level 1.8L, Magnesium Level 1.5L, Troponin I 0.022, C-Reactive Protein, Quantitative 17.6H, Pro-B-Type Natriuretic Peptide > 43196U Height (Feet): 5 Height (Inches): 4.00 Weight (Pounds): 170 General Appearance: no apparent distress, lethargic Cardiovascular: normal rate Respiratory/Chest: decreased breath sounds Abdomen: non tender Objective no other change DEBRA FERNANDES Oct 18, 2017 11:33
[2017-10-18 12:00] VITALS: BP 144/67
[2017-10-18] MEDS ORDERED: Phospha 250 Neutral tab ORAL ONE (12:00)
--- NOTE | 2017-10-18 13:38 | Diagnostic Imaging Report ---
Indication: Dyspnea Technique: XRAY Chest 1v Comparison: 10/07/2017 Findings: Stable cardiomegaly. Interval worsening of interstitial edema/opacification. There is persistent layering large right pleural effusion with adjacent dense right basilar atelectasis/consolidation. No definite pneumothorax. No acute osseous abnormality. Impression: Cardiomegaly with Slight interval worsening of interstitial opacification/edema. Persistent large layering right pleural effusion with adjacent right basilar atelectasis/consolidation. Pneumonia in the atelectatic lung should be excluded clinically..
[2017-10-18 16:00] VITALS: BP 123/58
--- NOTE | 2017-10-18 18:13 | Wound Care Consultation ---
Wound Assessment Wound Assessment #1: Wound Number: 1 Wound Present on Admission: Yes New Wound: No Status Change of Wound: No Wound Location Body Site Modif: left, lower, lateral Wound Location Body Site: leg Bebeto Test: Does not Bebeto Incisional Wounds: Dehisced Incision Wound Thickness: Full Thickness Wound Length: 2.5 Wound Width: 0.2 Wound Depth: utd Percent of Wound Bed Yellow/Wh: 100 Wound Drainage Description: Serosanguineous Wound Drainage Amount: Moderate Wound Drainage Odor: None/Absent Tissue Surrounding Wound: Intact Wound General Appearance: Draining Wound Assessment #2: Wound Number: 2 Wound Present on Admission: Yes New Wound: No Status Change of Wound: No Wound Location Body Site Modif: right Wound Location Body Site: heel Wound Type: pressure ulcer Bebeto Test: Does not Bebeto Pressure Ulcer Stage: Unstageable Wound Thickness: Full Thickness Wound Length: 3.5 Wound Width: 3.5 Wound Depth: utd Percent of Wound [place]/Red: 70 Percent of Wound Bed Yellow/Wh: 30 Wound Drainage Description: Serosanguineous Wound Drainage Amount: Moderate Wound Drainage Odor: None/Absent Tissue Surrounding Wound: Macerated Wound General Appearance: Reddened - yellow, Draining Wound Assessment #3: Wound Number: 3 Wound Present on Admission: Yes New Wound: No Status Change of Wound: No Wound Location Body Site Modif: mid Wound Location Body Site: other - Sacrococcygeal Wound Type: pressure ulcer Bebeto Test: Does not Bebeto Pressure Ulcer Stage: Unstageable Wound Thickness: Full Thickness Wound Length: 4.5 Wound Width: 6.0 Wound Depth: utd Percent of Wound [place]/Red: 10 Percent of Wound Bed Yellow/Wh: 50 Percent of Wound Purple/Maroon: 40 Wound Drainage Description: Serosanguineous Wound Drainage Amount: Scant Wound Drainage Odor: None/Absent Tissue Surrounding Wound: Macerated Wound General Appearance: Reddened - purple,yellow, Draining Wound Assessment #4: Wound Number: 4 Wound Present on Admission: Yes New Wound: No Status Change of Wound: No Wound Location Body Site Modif: left Wound Location Body Site: buttocks Wound Type: pressure ulcer Bebeto Test: Does not Bebeto Pressure Ulcer Stage: I Wound Length: 3.5 Wound Width: 3.5 Percent of Wound [place]/Red: 100 Wound Drainage Amount: None Wound Drainage Odor: None/Absent Tissue Surrounding Wound: Erythemic Wound General Appearance: Reddened Wound Assessment #5: Wound Number: 5 Wound Present on Admission: Yes New Wound: No Status Change of Wound: No Wound Location Body Site Modif: right Wound Location Body Site: buttocks Wound Type: pressure ulcer Bebeto Test: Does not Bebeto Pressure Ulcer Stage: I Wound Length: 2.5 Wound Width: 2.5 Percent of Wound [place]/Red: 100 Wound Drainage Amount: None Wound Drainage Odor: None/Absent Tissue Surrounding Wound: Erythemic Wound General Appearance: Reddened Wound Assessment #6: Wound Number: 6 Wound Present on Admission: Yes New Wound: No Status Change of Wound: No Wound Location Body Site Modif: left Wound Location Body Site: ischial tuberosity Wound Type: pressure ulcer Bebeto Test: Does not Bebeto Pressure Ulcer Stage: II Wound Thickness: Partial Thickness Wound Length: 1.0 Wound Width: 2.5 Wound Depth: 0.1 Percent of Wound [place]/Red: 100 Wound Drainage Amount: None Wound Drainage Odor: None/Absent Tissue Surrounding Wound: Erythemic Wound General Appearance: Reddened, Draining Wound Assessment #7: Wound Number: 7 Wound Present on Admission: Yes New Wound: No Status Change of Wound: No Wound Location Body Site Modif: right Wound Location Body Site: buttocks Wound Type: pressure ulcer Bebeto Test: Does not Bebeto Pressure Ulcer Stage: I Wound Length: 2.0 Wound Width: 2.0 Percent of Wound [place]/Red: 100 Wound Drainage Amount: None Wound Drainage Odor: None/Absent Tissue Surrounding Wound: Intact Wound General Appearance: Reddened Wound Assessment #8: Wound Number: 8 Wound Present on Admission: Yes New Wound: No Status Change of Wound: No Wound Location Body Site Modif: left Wound Location Body Site: trochanter Wound Type: pressure ulcer Bebeto Test: Does not Bebeto Pressure Ulcer Stage: Deep Tissue Injury Wound Thickness: Full Thickness Wound Length: 0.5 Wound Width: 4.5 Wound Depth: utd Percent of Wound Purple/Maroon: 100 Wound Drainage Amount: None Wound Drainage Odor: None/Absent Tissue Surrounding Wound: Intact Wound General Appearance: Reddened - maroon Wound Assessment #9: Wound Number: 9 Wound Present on Admission: Yes New Wound: No Status Change of Wound: No Wound Location Body Site Modif: right Wound Location Body Site: trochanter Wound Type: pressure ulcer Bebeto Test: Does not Bebeto Pressure Ulcer Stage: Deep Tissue Injury Wound Thickness: Full Thickness Wound Length: 0.5 Wound Width: 3.0 Wound Depth: utd Percent of Wound Purple/Maroon: 100 Wound Drainage Amount: None Wound Drainage Odor: None/Absent Tissue Surrounding Wound: Intact Wound General Appearance: Reddened - maroon Wound Comment #1 Left lower leg dehisced incision open wound #2 Right heel unstageable pressure ulcer #3 Sacrococcygeal unstageable pressure ulcer #4 Left buttock stage I pressure ulcer #5 Right buttock stage I pressure ulcer #6 Right ischial tuberosity Stage I pressure ulcer #7 Right ischial tuberosity stage II pressure ulcer #8 Right trochanter DTI pressure ulcer #9 Left trochanter DTI pressure ulcer Recommendations -Local wound care per protocol -Keep clean and dry -Turn and reposition -Low air loss mattress -Optimize nutrition -Offload both heels -Heel protector on both heels -Assess and f/u accordingly for any changes REJI LOVING RN Oct 18, 2017 18:13
[2017-10-18 20:00] VITALS: BP 111/48
--- NOTE | 2017-10-18 21:30 | Pulmonology Progress Note ---
Assessment/Plan Assessment/Plan respiratory distress chf RF on HD volume OL Pleural effusion right hypoxemia continue negative io with HD, last done 10/17 may require thoracentesis prn bipap prn nebs diruesis as well as bp will tolerate abx neuro checks swallow eval supplemental o2 as needed pt Subjective Allergies: Coded Allergies: SULFA (SULFONAMIDE ANTIBIOTICS) (Verified Allergy, Unknown, 10/06/11) Uncoded Allergies: SULFA (Allergy, Unknown, 10/15/17) Subjective sleeping awakens to voice no distress on o2 no fever noted not getting oob Objective Last 24 Hour Vital Signs Date Time Temp Pulse Resp B/P (MAP) Pulse Ox O2 Delivery O2 Flow Rate FiO2 10/18/17 20:58 70 111/48 10/18/17 19:07 80 18 98 Nasal Cannula 3.0 32 10/18/17 18:57 79 20 98 Nasal Cannula 2.0 28 10/18/17 17:30 123/58 10/18/17 17:30 71 123/58 10/18/17 16:20 97.7 10/18/17 16:00 98.1 75 18 123/58 96 Nasal Cannula 3.0 10/18/17 16:00 71 10/18/17 16:00 3.0 10/18/17 15:00 2.0 10/18/17 13:07 79 20 98 Bi-pap 30 10/18/17 13:05 30 10/18/17 13:03 79 20 98 Facial 30 10/18/17 12:57 86 22 96 Bi-pap 30 10/18/17 12:00 97.7 80 18 144/67 96 Bi-pap 30 10/18/17 12:00 30 10/18/17 12:00 81 10/18/17 09:17 134/73 10/18/17 09:17 83 134/73 10/18/17 09:17 83 134/73 10/18/17 08:00 98.0 83 18 134/73 99 Bi-pap 30 10/18/17 08:00 3.0 10/18/17 08:00 75 10/18/17 07:59 76 20 98 Nasal Cannula 4.0 10/18/17 07:55 30 10/18/17 07:54 83 23 Bi-pap 30 10/18/17 07:49 83 23 99 Bi-pap 30 10/18/17 07:10 83 23 99 Facial 30 10/18/17 04:00 75 10/18/17 04:00 30 10/18/17 04:00 97.8 76 18 147/70 100 Bi-pap 30 10/18/17 03:57 78 22 98 Facial 5.0 30 10/18/17 01:50 74 22 99 Bi-pap 30 10/18/17 01:40 30 10/18/17 01:39 74 22 99 Bi-pap 30 10/18/17 01:37 74 22 99 Facial 5.0 30 10/18/17 00:00 97.7 74 16 148/81 99 Bi-pap 30 10/18/17 00:00 71 10/18/17 00:00 30 10/17/17 23:09 78 22 97 Facial 30 10/17/17 22:00 30 Intake and Output 10/17/17 10/18/17 19:00 07:00 Intake Total 640 ml 120 ml Output Total 2200 ml 30 ml Balance -1560 ml 90 ml Intake Oral 640 ml 120 ml Output Urine Total 30 ml Hemodialysis UF 2200 ml # Voids 2 # Bowel Movements 2 3 General Appearance: cachetic HEENT: atraumatic, anicteric Respiratory/Chest: rhonchi Cardiovascular: normal rate, regular rhythm, murmur systolic, irregularly irregular, edema Abdomen: soft, non tender, no organomegaly Extremities: no cyanosis, no clubbing Neurologic/Psychiatric: sensory deficit Microbiology Date/Time Source Procedure Growth Status 10/17/17 18:40 Straight Cath Urine Culture - Preliminary NO GROWTH Resulted Laboratory Tests 10/18/17 03:00: Phosphorus Level 1.8L, Magnesium Level 1.5L, Troponin I 0.022, C-Reactive Protein, Quantitative 17.6H, Pro-B-Type Natriuretic Peptide > 38339M 10/18/17 14:34: Arterial Blood pH 7.450, Arterial Blood Partial Pressure CO2 42.9, Arterial Blood Partial Pressure O2 65.7L, Arterial Blood HCO3 29.6H, Arterial Blood Oxygen Saturation 93.3, Arterial Blood Base Excess 5.1, Parth Test Positive Current Medications Medications (Trade) Dose Ordered Sig/Eli Route PRN Reason Start Time Stop Time Status Last Admin Dose Admin Acetaminophen (Tylenol) 650 mg Q4H PRN ORAL Mild Pain (Pain Scale 1-3) 10/16/17 00:00 11/15/17 00:00 10/18/17 15:22 Acetaminophen (Tylenol) 650 mg Q4H PRN RECTAL fever 10/16/17 00:00 11/15/17 00:00 Amlodipine Besylate (Norvasc) 5 mg BID ORAL 10/17/17 18:00 11/15/17 13:29 10/18/17 17:30 Apixaban (Eliquis) 5 mg BID ORAL 10/16/17 18:00 11/15/17 17:59 10/18/17 17:30 Aspirin (Ecotrin) 81 mg DAILY ORAL 10/16/17 13:30 11/15/17 13:29 10/18/17 09:17 Carvedilol (Coreg) 3.125 mg EVERY 12 HOURS ORAL 10/16/17 13:30 11/15/17 13:29 10/18/17 20:58 Clotrimazole (Lotrimin) 1 applic EVERY 12 HOURS TOPIC 10/18/17 21:00 11/17/17 20:59 10/18/17 21:00 Dextrose (Dextrose 50%) STAT PRN IV Hypoglycemia 10/16/17 00:00 11/15/17 00:00 Docusate Sodium (Colace) 100 mg EVERY 12 HOURS ORAL 10/16/17 09:00 11/15/17 08:59 10/18/17 20:59 Ipratropium [place] (Atrovent) 0.5 mcg Q4H PRN N Shortness of Breath 10/16/17 00:00 10/21/17 00:00 Ipratropium [place] (Atrovent) 0.5 mcg Q6HRT HHN 10/16/17 19:00 10/21/17 18:59 10/18/17 18:55 Lansoprazole (Prevacid) 30 mg DAILY ORAL 10/18/17 12:00 11/17/17 11:59 10/18/17 12:11 Levetiracetam (Keppra) 500 mg BID GT 10/16/17 13:30 11/15/17 13:29 10/18/17 17:27 Levothyroxine Sodium (Synthroid) 50 mcg DAILY@0630 ORAL 10/17/17 06:30 11/16/17 06:29 10/18/17 06:15 Lisinopril (Zestril) 2.5 mg BID ORAL 10/17/17 18:00 11/15/17 13:29 10/18/17 17:30 Ondansetron HCl (Zofran) 4 mg Q6H PRN IVP Nausea & Vomiting 10/16/17 00:00 11/15/17 00:00 Polyethylene Glycol (Miralax) 17 gm DAILYPRN PRN ORAL Constipation 10/16/17 00:00 11/15/17 00:00 Vitamin B Complex/ Vit C/Folic Acid (Nephrovite) 1 tab DAILY ORAL 10/16/17 13:30 11/15/17 13:29 10/18/17 09:17 JOSEPH LE DO Oct 18, 2017 21:30
--- NOTE | 2017-10-18 23:35 | General Progress Note ---
Assessment/Plan Problem List: (1) Acute on chronic diastolic heart failure (2) Acute toxic metabolic encephalopathy (3) Acute hypercapnic respiratory failure ICD Codes: J96.02 - Acute respiratory failure with hypercapnia SNOMED: 232069035 (4) ESRD (end stage renal disease) on dialysis ICD Codes: N18.6 - End stage renal disease; Z99.2 - Dependence on renal dialysis SNOMED: 094502426 (5) Moderate R pleural effusion Status: stable Assessment/Plan Pulm consulted BIPAP qHS and PRN Trend ABG Thoracentesis ordered for R pleural effusion Renal consulted Cont HD per renal for volume removal. Last HD 10/17 AM Trend BMP Strict I/O's, daily weights Cont home meds Pain control, supportive care, bowel regimen DVT Prophylaxis: SCD, Eliquis Code Status: Full Hospital Classification Declaration: Based on this initial evaluation, and depending on the patient's clinical course, I anticipate that this patient will require hospitalization for 1-2 days for AMS, CHF and close respiratory/ hemodynamic monitoring. Disposition: Once the patient is stable to leave the hospital, I anticipate the patient will likely be discharged to the following environment: home with HH vs SNF Discussed with patient/family, nursing staff, SW/CM, pulm, renal, regarding clinical status, treatment course, and disposition planning. D/w renal re volume removal w/ HD Time of note may not reflect time of encounter. Subjective Date patient seen: Oct 18, 2017 Time patient seen: 15:00 ROS Limited/Unobtainable: Yes Constitutional: Reports: no symptoms HEENT: Reports: no symptoms Cardiovascular: Reports: no symptoms Respiratory: Reports: shortness of breath Gastrointestinal/Abdominal: Reports: no symptoms Genitourinary: Reports: no symptoms Neurologic/Psychiatric: Reports: no symptoms Endocrine: Reports: no symptoms Hematologic/Lymphatic: Reports: no symptoms Allergies: Coded Allergies: SULFA (SULFONAMIDE ANTIBIOTICS) (Verified Allergy, Unknown, 10/06/11) Uncoded Allergies: SULFA (Allergy, Unknown, 10/15/17) All Systems: reviewed and negative except above Subjective No acute o/n events s/p HD yesterday Pt back on BiPAP today given c/o SOB. Denies chest pain, f/c, n/v/d/c, abd pain Objective Last 24 Hour Vital Signs Date Time Temp Pulse Resp B/P (MAP) Pulse Ox O2 Delivery O2 Flow Rate FiO2 10/18/17 20:58 70 111/48 10/18/17 20:00 97.5 70 18 111/48 94 Nasal Cannula 3.0 10/18/17 20:00 69 10/18/17 19:07 80 18 98 Nasal Cannula 3.0 32 10/18/17 18:57 79 20 98 Nasal Cannula 2.0 28 10/18/17 17:30 123/58 10/18/17 17:30 71 123/58 10/18/17 16:20 97.7 10/18/17 16:00 98.1 75 18 123/58 96 Nasal Cannula 3.0 10/18/17 16:00 71 10/18/17 16:00 3.0 10/18/17 15:00 2.0 10/18/17 13:07 79 20 98 Bi-pap 30 10/18/17 13:05 30 10/18/17 13:03 79 20 98 Facial 30 10/18/17 12:57 86 22 96 Bi-pap 30 10/18/17 12:00 97.7 80 18 144/67 96 Bi-pap 30 10/18/17 12:00 30 10/18/17 12:00 81 10/18/17 09:17 134/73 10/18/17 09:17 83 134/73 10/18/17 09:17 83 134/73 10/18/17 08:00 98.0 83 18 134/73 99 Bi-pap 30 10/18/17 08:00 3.0 10/18/17 08:00 75 10/18/17 07:59 76 20 98 Nasal Cannula 4.0 10/18/17 07:55 30 10/18/17 07:54 83 23 Bi-pap 30 10/18/17 07:49 83 23 99 Bi-pap 30 10/18/17 07:10 83 23 99 Facial 30 10/18/17 04:00 75 10/18/17 04:00 30 10/18/17 04:00 97.8 76 18 147/70 100 Bi-pap 30 10/18/17 03:57 78 22 98 Facial 5.0 30 10/18/17 01:50 74 22 99 Bi-pap 30 10/18/17 01:40 30 10/18/17 01:39 74 22 99 Bi-pap 30 10/18/17 01:37 74 22 99 Facial 5.0 30 10/18/17 00:00 97.7 74 16 148/81 99 Bi-pap 30 10/18/17 00:00 71 10/18/17 00:00 30 Intake and Output 10/17/17 10/18/17 19:00 07:00 Intake Total 640 ml 120 ml Output Total 2200 ml 30 ml Balance -1560 ml 90 ml Intake Oral 640 ml 120 ml Output Urine Total 30 ml Hemodialysis UF 2200 ml # Voids 2 # Bowel Movements 2 3 Laboratory Tests 10/18/17 03:00: Phosphorus Level 1.8L, Magnesium Level 1.5L, Troponin I 0.022, C-Reactive Protein, Quantitative 17.6H, Pro-B-Type Natriuretic Peptide > 19082Z 10/18/17 14:34: Arterial Blood pH 7.450, Arterial Blood Partial Pressure CO2 42.9, Arterial Blood Partial Pressure O2 65.7L, Arterial Blood HCO3 29.6H, Arterial Blood Oxygen Saturation 93.3, Arterial Blood Base Excess 5.1, Parth Test Positive Height (Feet): 5 Height (Inches): 4.00 Weight (Pounds): 170 Objective General: alert, cooperative, no distress, appears stated age Head: normocephalic, without obvious abnormality, atraumatic Eyes: conjunctivae/corneas clear. PERRL, EOM's intact Throat: lips, mucosa, and tongue normal. MMM Neck: supple, symmetrical, trachea midline, and +JVD Lungs: +crackles b/l Heart: regular rate and rhythm, S1, S2 normal, no murmur, click, rub or gallop Abdomen: soft, non-tender, non-distended, bowel sounds normal; no masses or organomegaly Extremities: extremities normal, atraumatic, no cyanosis, 2+ pitting edema Pulses: 2+ and symmetric Skin: skin color, texture, turgor normal; no rashes or lesions Neurologic: grossly normal, no focal deficits Annalise Marinelli M.D. Oct 18, 2017 23:35
[2017-10-19] VITALS: BP 125/61
[2017-10-19] MEDS: Ipratropium 0.02% Inh Soln 2.5ml UD HHN SCH ×4 (00:43→19:35)
[2017-10-19 04:00] VITALS: BP 131/71
[2017-10-19 05:36] LABS: BASOPHILS % (AUTO) 0.6 % (0.0-2.0); EOSINOPHILS % (AUTO) 3.1 % (0.0-3.0); HEMATOCRIT 30.1 % (37.0-47.0); HEMOGLOBIN 9.1 G/DL (12.0-16.0); LYMPHOCYTES % (AUTO) 25.4 % (20.0-45.0); MEAN CORPUSCULAR VOLUME 109 FL (80-99); MONOCYTES % (AUTO) 10.5 % (1.0-10.0); NEUTROPHILS % (AUTO) 60.4 % (45.0-75.0); PLATELET COUNT 273 K/UL (150-450); RED BLOOD COUNT 2.77 M/UL (4.20-5.40); RED CELL DISTRIBUTION WIDTH 18.1 % (11.6-14.8); WHITE BLOOD COUNT 9.7 K/UL (4.8-10.8)
[2017-10-19 06:43] LABS: ALANINE AMINOTRANSFERASE < 6 U/L (12-78); ALBUMIN 1.3 G/DL (3.4-5.0); ALBUMIN/GLOBULIN RATIO 0.3 (1.0-2.7); ALKALINE PHOSPHATASE 119 U/L (46-116); ANION GAP 9 mmol/L (5-15); ASPARTATE AMINO TRANSFERASE 16 U/L (15-37); BILIRUBIN,TOTAL 0.3 MG/DL (0.2-1.0); BLOOD UREA NITROGEN 27 mg/dL (7-18); CALCIUM 6.9 MG/DL (8.5-10.1); CARBON DIOXIDE 27 MMOL/L (21-32); CHLORIDE 99 MMOL/L (98-107); CREATININE 2.4 MG/DL (0.55-1.30); PHOSPHORUS 3.4 MG/DL (2.5-4.9); POTASSIUM 3.8 MMOL/L (3.5-5.1); SODIUM 135 MMOL/L (136-145)
[2017-10-19] MEDS: levETIRAcetam 500mg/5ml Liquid GT SCH ×2 (09:25→17:47)
[2017-10-19] MEDS: Lisinopril 2.5mg tab ORAL SCH ×2 (09:26→17:47)
[2017-10-19] MEDS: Aspirin EC 81mg tab ORAL SCH (09:27)
[2017-10-19] MEDS: Eliquis 2.5mg tablet ORAL SCH ×2 (09:28→17:48)
[2017-10-19] MEDS: Docusate 100mg cap ORAL SCH (09:32)
[2017-10-19] MEDS: Nephrovite tab (Rena-Vite) ORAL SCH (09:33)
[2017-10-19 12:00] VITALS: BP 129/62
--- NOTE | 2017-10-19 14:20 | Nephrology Progress Note ---
Assessment/Plan Problem List: (1) ESRD (end stage renal disease) on dialysis (2) Acute on chronic diastolic heart failure (3) Acute hypercapnic respiratory failure (4) Acute toxic metabolic encephalopathy Assessment ESRD CHF, Pleural effusion Anemia of CKD DM Encephalopathy HypoAlbuminemai Sz disorder HypoThyroidism Plan Plan: Add zaroxyllin Follow up Echo HD next 10/20/17 Adjust BP and BS optimize cardiac status check UA and c/s Mag and Phos supplement per orders Subjective ROS Limited/Unobtainable: No Constitutional: Reports: malaise Objective Objective Last 24 Hour Vital Signs Date Time Temp Pulse Resp B/P (MAP) Pulse Ox O2 Delivery O2 Flow Rate FiO2 10/19/17 12:49 70 16 99 Nasal Cannula 2.0 28 10/19/17 12:43 70 16 96 Nasal Cannula 2.0 28 10/19/17 12:00 97.9 69 19 129/62 100 10/19/17 11:49 76 10/19/17 09:28 75 145/84 10/19/17 09:27 75 145/84 10/19/17 09:26 145/84 10/19/17 07:55 74 10/19/17 07:10 76 16 99 Nasal Cannula 2.0 28 10/19/17 07:03 74 16 97 Nasal Cannula 2.0 28 10/19/17 04:00 68 10/19/17 04:00 96.1 70 18 131/71 95 Nasal Cannula 3.0 10/19/17 01:09 97.5 10/19/17 01:00 69 18 99 Nasal Cannula 2.0 28 10/19/17 00:45 68 19 99 Nasal Cannula 2.0 28 10/19/17 00:00 67 10/19/17 00:00 97.2 76 18 125/61 95 Nasal Cannula 3.0 10/18/17 20:58 70 111/48 10/18/17 20:00 97.5 70 18 111/48 94 Nasal Cannula 3.0 10/18/17 20:00 69 10/18/17 19:07 80 18 98 Nasal Cannula 3.0 32 10/18/17 18:57 79 20 98 Nasal Cannula 2.0 28 10/18/17 17:30 123/58 10/18/17 17:30 71 123/58 10/18/17 16:00 98.1 75 18 123/58 96 Nasal Cannula 3.0 10/18/17 16:00 71 10/18/17 16:00 3.0 10/18/17 15:00 2.0 Intake and Output 10/18/17 10/19/17 19:00 07:00 Intake Total 920 ml 70 ml Balance 920 ml 70 ml Intake Oral 720 ml 70 ml IV Total 200 ml # Bowel Movements 1 Laboratory Tests 10/18/17 14:34: Arterial Blood pH 7.450, Arterial Blood Partial Pressure CO2 42.9, Arterial Blood Partial Pressure O2 65.7L, Arterial Blood HCO3 29.6H, Arterial Blood Oxygen Saturation 93.3, Arterial Blood Base Excess 5.1, Parth Test Positive 10/19/17 03:30: White Blood Count 9.7, Red Blood Count 2.77L, Hemoglobin 9.1L, Hematocrit 30.1L , Mean Corpuscular Volume 109H, Mean Corpuscular Hemoglobin 32.8H, Mean Corpuscular Hemoglobin Concent 30.1L, Red Cell Distribution Width 18.1H, Platelet Count 273, Mean Platelet Volume 6.1L, Neutrophils (%) (Auto) 60.4, Lymphocytes (%) (Auto) 25.4, Monocytes (%) (Auto) 10.5H, Eosinophils (%) (Auto) 3.1H, Basophils (%) (Auto) 0.6, Sodium Level 135L, Potassium Level 3.8, Chloride Level 99, Carbon Dioxide Level 27, Anion Gap 9, Blood Urea Nitrogen 27H , Creatinine 2.4H, Estimat Glomerular Filtration Rate 20.0, Glucose Level 118H, Uric Acid 4.1, Calcium Level 6.9L, Phosphorus Level 3.4, Magnesium Level 1.9, Total Bilirubin 0.3, Aspartate Amino Transf (AST/SGOT) 16, Alanine Aminotransferase (ALT/SGPT) < 6L, Alkaline Phosphatase 119H, C-Reactive Protein , Quantitative 11.5H, Pro-B-Type Natriuretic Peptide > 80520A, Total Protein 5.7L, Albumin 1.3L, Globulin 4.4, Albumin/Globulin Ratio 0.3L Height (Feet): 5 Height (Inches): 4.00 Weight (Pounds): 163 Cardiovascular: normal rate Respiratory/Chest: decreased breath sounds Abdomen: distended Objective no other change DEBRA FERNANDES Oct 19, 2017 14:20
[2017-10-19] MEDS ORDERED: Tubing IV Secondary IV ONE (14:36)
[2017-10-19] MEDS ORDERED: NS 500ML ONE (14:36)
[2017-10-19 16:00] VITALS: BP 135/62
[2017-10-19] MEDS: Docusate 100mg/10ml Liq GT SCH (18:00)
--- NOTE | 2017-10-19 18:37 | General Progress Note ---
Assessment/Plan Problem List: (1) Edema ICD Codes: R60.9 - Edema, unspecified SNOMED: 477555445, 802537495 (2) ESRD (end stage renal disease) on dialysis ICD Codes: N18.6 - End stage renal disease; Z99.2 - Dependence on renal dialysis SNOMED: 135431670 (3) Acute on chronic diastolic heart failure (4) Acute hypercapnic respiratory failure ICD Codes: J96.02 - Acute respiratory failure with hypercapnia SNOMED: 346785961 (5) Acute toxic metabolic encephalopathy (6) Moderate R pleural effusion Status: stable Assessment/Plan Pulm consulted BIPAP qHS and PRN Trend ABG Thoracentesis ordered for R pleural effusion --> will be done tomorrow Renal consulted Cont HD per renal for volume removal. Last HD 10/17 AM --> next HD /2 F/u TTE F/u arterial and venous duplex of LUE Trend BMP Strict I/O's, daily weights Cont home meds Pain control, supportive care, bowel regimen DVT Prophylaxis: SCD, Eliquis Code Status: Full Hospital Classification Declaration: Based on this initial evaluation, and depending on the patient's clinical course, I anticipate that this patient will require hospitalization for 1-2 days for AMS, CHF and close respiratory/ hemodynamic monitoring. Disposition: Once the patient is stable to leave the hospital, I anticipate the patient will likely be discharged to the following environment: home with HH vs SNF Discussed with patient/family, nursing staff, SW/CM, pulm, renal, regarding clinical status, treatment course, and disposition planning. D/w renal re volume removal w/ HD Time of note may not reflect time of encounter. Subjective Date patient seen: Oct 19, 2017 Allergies: Coded Allergies: SULFA (SULFONAMIDE ANTIBIOTICS) (Verified Allergy, Unknown, 10/06/11) Uncoded Allergies: SULFA (Allergy, Unknown, 10/15/17) Subjective - thoracentesis, TTE, and dialysis to be scheduled for tomorrow - per RN, patient noted to have increased edema to left upper extremity with the AVF - patient denies any pain to the LUE Objective Last 24 Hour Vital Signs Date Time Temp Pulse Resp B/P (MAP) Pulse Ox O2 Delivery O2 Flow Rate FiO2 10/19/17 17:47 135/62 10/19/17 16:00 97.7 75 18 135/62 97 10/19/17 12:49 70 16 99 Nasal Cannula 2.0 28 10/19/17 12:43 70 16 96 Nasal Cannula 2.0 28 10/19/17 12:00 97.9 69 19 129/62 100 10/19/17 11:49 76 10/19/17 09:28 75 145/84 10/19/17 09:27 75 145/84 10/19/17 09:26 145/84 10/19/17 07:55 74 10/19/17 07:10 76 16 99 Nasal Cannula 2.0 28 10/19/17 07:03 74 16 97 Nasal Cannula 2.0 28 10/19/17 04:00 68 10/19/17 04:00 96.1 70 18 131/71 95 Nasal Cannula 3.0 10/19/17 01:09 97.5 10/19/17 01:00 69 18 99 Nasal Cannula 2.0 28 10/19/17 00:45 68 19 99 Nasal Cannula 2.0 28 10/19/17 00:00 67 10/19/17 00:00 97.2 76 18 125/61 95 Nasal Cannula 3.0 10/18/17 20:58 70 111/48 10/18/17 20:00 97.5 70 18 111/48 94 Nasal Cannula 3.0 10/18/17 20:00 69 10/18/17 19:07 80 18 98 Nasal Cannula 3.0 32 10/18/17 18:57 79 20 98 Nasal Cannula 2.0 28 Intake and Output 10/18/17 10/19/17 19:00 07:00 Intake Total 920 ml 70 ml Balance 920 ml 70 ml Intake Oral 720 ml 70 ml IV Total 200 ml # Bowel Movements 1 Laboratory Tests 10/19/17 03:30: White Blood Count 9.7, Red Blood Count 2.77L, Hemoglobin 9.1L, Hematocrit 30.1L , Mean Corpuscular Volume 109H, Mean Corpuscular Hemoglobin 32.8H, Mean Corpuscular Hemoglobin Concent 30.1L, Red Cell Distribution Width 18.1H, Platelet Count 273, Mean Platelet Volume 6.1L, Neutrophils (%) (Auto) 60.4, Lymphocytes (%) (Auto) 25.4, Monocytes (%) (Auto) 10.5H, Eosinophils (%) (Auto) 3.1H, Basophils (%) (Auto) 0.6, Sodium Level 135L, Potassium Level 3.8, Chloride Level 99, Carbon Dioxide Level 27, Anion Gap 9, Blood Urea Nitrogen 27H , Creatinine 2.4H, Estimat Glomerular Filtration Rate 20.0, Glucose Level 118H, Uric Acid 4.1, Calcium Level 6.9L, Phosphorus Level 3.4, Magnesium Level 1.9, Total Bilirubin 0.3, Aspartate Amino Transf (AST/SGOT) 16, Alanine Aminotransferase (ALT/SGPT) < 6L, Alkaline Phosphatase 119H, C-Reactive Protein , Quantitative 11.5H, Pro-B-Type Natriuretic Peptide > 76286C, Total Protein 5.7L, Albumin 1.3L, Globulin 4.4, Albumin/Globulin Ratio 0.3L Height (Feet): 5 Height (Inches): 4.00 Weight (Pounds): 163 General Appearance: no apparent distress EENT: PERRL/EOMI, normal ENT inspection Neck: non-tender, normal alignment, supple Cardiovascular: normal peripheral pulses, normal rate Respiratory/Chest: crackles/rales - right base and apex Abdomen: normal bowel sounds, non tender, soft Edema: 3+ Arm (L), 1+ Leg (L), 1+ Leg (R) Neurologic: field associate II-XII grossly normal, alert, oriented x 3 Victoria Golden N.P. Oct 19, 2017 18:37
[2017-10-19 20:00] VITALS: BP 129/71
[2017-10-19] MEDS ORDERED: Docusate 100mg cap ORAL SCH (21:00)
--- NOTE | 2017-10-19 21:12 | Pulmonology Progress Note ---
Assessment/Plan Assessment/Plan respiratory distress chf RF on HD volume OL Pleural effusion right hypoxemia continue negative io with HD, last done 10/17 may require thoracentesis prn bipap prn nebs diruesis as well as bp will tolerate abx neuro checks swallow eval supplemental o2 as needed pt Subjective ROS Limited/Unobtainable: Yes Allergies: Coded Allergies: SULFA (SULFONAMIDE ANTIBIOTICS) (Verified Allergy, Unknown, 10/06/11) Uncoded Allergies: SULFA (Allergy, Unknown, 10/15/17) Subjective sleeping awakens to voice no distress on o2 no fever noted not getting oob Objective Last 24 Hour Vital Signs Date Time Temp Pulse Resp B/P (MAP) Pulse Ox O2 Delivery O2 Flow Rate FiO2 10/19/17 19:49 77 18 97 Nasal Cannula 2.0 28 10/19/17 19:38 28 10/19/17 19:37 77 18 97 Nasal Cannula 2.0 28 10/19/17 17:47 135/62 10/19/17 16:00 97.7 75 18 135/62 97 10/19/17 16:00 71 10/19/17 12:49 70 16 99 Nasal Cannula 2.0 28 10/19/17 12:43 70 16 96 Nasal Cannula 2.0 28 10/19/17 12:00 97.9 69 19 129/62 100 10/19/17 11:49 76 10/19/17 09:28 75 145/84 10/19/17 09:27 75 145/84 10/19/17 09:26 145/84 10/19/17 07:55 74 10/19/17 07:10 76 16 99 Nasal Cannula 2.0 28 10/19/17 07:03 74 16 97 Nasal Cannula 2.0 28 10/19/17 04:00 68 10/19/17 04:00 96.1 70 18 131/71 95 Nasal Cannula 3.0 10/19/17 01:09 97.5 10/19/17 01:00 69 18 99 Nasal Cannula 2.0 28 10/19/17 00:45 68 19 99 Nasal Cannula 2.0 28 10/19/17 00:00 67 10/19/17 00:00 97.2 76 18 125/61 95 Nasal Cannula 3.0 Intake and Output 10/18/17 10/19/17 19:00 07:00 Intake Total 920 ml 70 ml Balance 920 ml 70 ml Intake Oral 720 ml 70 ml IV Total 200 ml # Bowel Movements 1 Microbiology Date/Time Source Procedure Growth Status 10/17/17 18:40 Urine,Clean Catch Urine Culture - Preliminary Resulted 10/17/17 18:40 Straight Cath Urine Culture - Preliminary Mixed Gram Positive Organism Resulted Laboratory Tests 10/19/17 03:30: White Blood Count 9.7, Red Blood Count 2.77L, Hemoglobin 9.1L, Hematocrit 30.1L , Mean Corpuscular Volume 109H, Mean Corpuscular Hemoglobin 32.8H, Mean Corpuscular Hemoglobin Concent 30.1L, Red Cell Distribution Width 18.1H, Platelet Count 273, Mean Platelet Volume 6.1L, Neutrophils (%) (Auto) 60.4, Lymphocytes (%) (Auto) 25.4, Monocytes (%) (Auto) 10.5H, Eosinophils (%) (Auto) 3.1H, Basophils (%) (Auto) 0.6, Sodium Level 135L, Potassium Level 3.8, Chloride Level 99, Carbon Dioxide Level 27, Anion Gap 9, Blood Urea Nitrogen 27H , Creatinine 2.4H, Estimat Glomerular Filtration Rate 20.0, Glucose Level 118H, Uric Acid 4.1, Calcium Level 6.9L, Phosphorus Level 3.4, Magnesium Level 1.9, Total Bilirubin 0.3, Aspartate Amino Transf (AST/SGOT) 16, Alanine Aminotransferase (ALT/SGPT) < 6L, Alkaline Phosphatase 119H, C-Reactive Protein , Quantitative 11.5H, Pro-B-Type Natriuretic Peptide > 15047K, Total Protein 5.7L, Albumin 1.3L, Globulin 4.4, Albumin/Globulin Ratio 0.3L Current Medications Medications (Trade) Dose Ordered Sig/Eli Route PRN Reason Start Time Stop Time Status Last Admin Dose Admin Acetaminophen (Tylenol) 650 mg Q4H PRN ORAL Mild Pain (Pain Scale 1-3) 10/16/17 00:00 11/15/17 00:00 10/19/17 12:37 Acetaminophen (Tylenol) 650 mg Q4H PRN RECTAL fever 10/16/17 00:00 11/15/17 00:00 Amlodipine Besylate (Norvasc) 5 mg DAILY ORAL 10/20/17 09:00 11/15/17 13:29 Apixaban (Eliquis) 5 mg BID ORAL 10/16/17 18:00 11/15/17 17:59 10/19/17 17:48 Aspirin (Ecotrin) 81 mg DAILY ORAL 10/16/17 13:30 11/15/17 13:29 10/19/17 09:27 Carvedilol (Coreg) 3.125 mg EVERY 12 HOURS ORAL 10/16/17 13:30 11/15/17 13:29 10/19/17 09:27 Clotrimazole (Lotrimin) 1 applic EVERY 12 HOURS TOPIC 10/18/17 21:00 11/17/17 20:59 10/19/17 09:33 Dextrose (Dextrose 50%) STAT PRN IV Hypoglycemia 10/16/17 00:00 11/15/17 00:00 Docusate Sodium (Colace) 100 mg BID GT 10/19/17 18:00 11/18/17 17:59 Ipratropium [place] (Atrovent) 0.5 mcg Q4H PRN HHN Shortness of Breath 10/16/17 00:00 10/21/17 00:00 Ipratropium [place] (Atrovent) 0.5 mcg Q6HRT HHN 10/16/17 19:00 10/21/17 18:59 10/19/17 19:35 Lansoprazole (Prevacid) 30 mg DAILY ORAL 10/18/17 12:00 11/17/17 11:59 10/19/17 09:27 Levetiracetam (Keppra) 500 mg BID GT 10/16/17 13:30 11/15/17 13:29 10/19/17 17:47 Levothyroxine Sodium (Synthroid) 50 mcg DAILY@0630 ORAL 10/17/17 06:30 11/16/17 06:29 10/19/17 05:37 Lisinopril (Zestril) 2.5 mg BID ORAL 10/17/17 18:00 11/15/17 13:29 10/19/17 17:47 Ondansetron HCl (Zofran) 4 mg Q6H PRN IVP Nausea & Vomiting 10/16/17 00:00 11/15/17 00:00 Polyethylene Glycol (Miralax) 17 gm DAILYPRN PRN ORAL Constipation 10/16/17 00:00 11/15/17 00:00 Vitamin B Complex/ Vit C/Folic Acid (Nephrovite) 1 tab DAILY ORAL 10/16/17 13:30 11/15/17 13:29 10/19/17 09:33 JOSEPH LE DO Oct 19, 2017 21:12
--- NOTE | 2017-10-19 21:37 | Pulmonology Progress Note ---
Assessment/Plan Assessment/Plan respiratory distress chf RF on HD volume OL Pleural effusion right hypoxemia continue negative io with HD, may require thoracentesis prn bipap prn nebs diruesis as well as bp will tolerate abx neuro checks swallow eval supplemental o2 as needed pt cxr am Subjective Constitutional: Reports: no symptoms HEENT: Repors: no symptoms Respiratory: Reports: dry cough, shortness of breath Cardiovascular: Reports: no symptoms Genitourinary: Reports: no symptoms Psychiatric: Reports: no symptoms Skin: Reports: no symptoms Allergies: Coded Allergies: SULFA (SULFONAMIDE ANTIBIOTICS) (Verified Allergy, Unknown, 10/06/11) Uncoded Allergies: SULFA (Allergy, Unknown, 10/15/17) Subjective awake and requesting food off bipap Current Medications Medications (Trade) Dose Ordered Sig/Eli Route PRN Reason Start Time Stop Time Status Last Admin Dose Admin Acetaminophen (Tylenol) 650 mg Q4H PRN ORAL Mild Pain (Pain Scale 1-3) 10/16/17 00:00 11/15/17 00:00 10/19/17 12:37 Acetaminophen (Tylenol) 650 mg Q4H PRN RECTAL fever 10/16/17 00:00 11/15/17 00:00 Amlodipine Besylate (Norvasc) 5 mg DAILY ORAL 10/20/17 09:00 11/15/17 13:29 Apixaban (Eliquis) 5 mg BID ORAL 10/16/17 18:00 11/15/17 17:59 10/19/17 17:48 Aspirin (Ecotrin) 81 mg DAILY ORAL 10/16/17 13:30 11/15/17 13:29 10/19/17 09:27 Carvedilol (Coreg) 3.125 mg EVERY 12 HOURS ORAL 10/16/17 13:30 11/15/17 13:29 10/19/17 21:33 Clotrimazole (Lotrimin) 1 applic EVERY 12 HOURS TOPIC 10/18/17 21:00 11/17/17 20:59 10/19/17 21:32 Dextrose (Dextrose 50%) STAT PRN IV Hypoglycemia 10/16/17 00:00 11/15/17 00:00 Docusate Sodium (Colace) 100 mg BID GT 10/19/17 18:00 11/18/17 17:59 Ipratropium [place] (Atrovent) 0.5 mcg Q4H PRN HHN Shortness of Breath 10/16/17 00:00 10/21/17 00:00 Ipratropium [place] (Atrovent) 0.5 mcg Q6HRT HHN 10/16/17 19:00 10/21/17 18:59 10/19/17 19:35 Lansoprazole (Prevacid) 30 mg DAILY ORAL 10/18/17 12:00 11/17/17 11:59 10/19/17 09:27 Levetiracetam (Keppra) 500 mg BID GT 10/16/17 13:30 11/15/17 13:29 10/19/17 17:47 Levothyroxine Sodium (Synthroid) 50 mcg DAILY@0630 ORAL 10/17/17 06:30 11/16/17 06:29 10/19/17 05:37 Lisinopril (Zestril) 2.5 mg BID ORAL 10/17/17 18:00 11/15/17 13:29 10/19/17 17:47 Ondansetron HCl (Zofran) 4 mg Q6H PRN IVP Nausea & Vomiting 10/16/17 00:00 11/15/17 00:00 Polyethylene Glycol (Miralax) 17 gm DAILYPRN PRN ORAL Constipation 10/16/17 00:00 11/15/17 00:00 Vitamin B Complex/ Vit C/Folic Acid (Nephrovite) 1 tab DAILY ORAL 10/16/17 13:30 11/15/17 13:29 10/19/17 09:33 Laboratory Tests Test 10/19/17 03:30 White Blood Count 9.7 K/UL (4.8-10.8) Red Blood Count 2.77 M/UL (4.20-5.40) L Hemoglobin 9.1 G/DL (12.0-16.0) L Hematocrit 30.1 % (37.0-47.0) L Mean Corpuscular Volume 109 FL (80-99) H Mean Corpuscular Hemoglobin 32.8 PG (27.0-31.0) H Mean Corpuscular Hemoglobin Concent 30.1 G/DL (32.0-36.0) L Red Cell Distribution Width 18.1 % (11.6-14.8) H Platelet Count 273 K/UL (150-450) Mean Platelet Volume 6.1 FL (6.5-10.1) L Neutrophils (%) (Auto) 60.4 % (45.0-75.0) Lymphocytes (%) (Auto) 25.4 % (20.0-45.0) Monocytes (%) (Auto) 10.5 % (1.0-10.0) H Eosinophils (%) (Auto) 3.1 % (0.0-3.0) H Basophils (%) (Auto) 0.6 % (0.0-2.0) Sodium Level 135 MMOL/L (136-145) L Potassium Level 3.8 MMOL/L (3.5-5.1) Chloride Level 99 MMOL/L (98-107) Carbon Dioxide Level 27 MMOL/L (21-32) Anion Gap 9 mmol/L (5-15) Blood Urea Nitrogen 27 mg/dL (7-18) H Creatinine 2.4 MG/DL (0.55-1.30) H Estimat Glomerular Filtration Rate 20.0 mL/min (>60) Glucose Level 118 MG/DL (74-106) H Uric Acid 4.1 MG/DL (2.6-7.2) Calcium Level 6.9 MG/DL (8.5-10.1) L Phosphorus Level 3.4 MG/DL (2.5-4.9) Magnesium Level 1.9 MG/DL (1.8-2.4) Total Bilirubin 0.3 MG/DL (0.2-1.0) Aspartate Amino Transf (AST/SGOT) 16 U/L (15-37) Alanine Aminotransferase (ALT/SGPT) < 6 U/L (12-78) L Alkaline Phosphatase 119 U/L (46-116) H C-Reactive Protein, Quantitative 11.5 mg/dL (0.00-0.90) H Pro-B-Type Natriuretic Peptide > 93886 pg/mL (0-125) H Total Protein 5.7 G/DL (6.4-8.2) L Albumin 1.3 G/DL (3.4-5.0) L Globulin 4.4 g/dL Albumin/Globulin Ratio 0.3 (1.0-2.7) L no distress on o2 no fever noted not getting oob Objective Last 24 Hour Vital Signs Date Time Temp Pulse Resp B/P (MAP) Pulse Ox O2 Delivery O2 Flow Rate FiO2 10/19/17 21:33 75 129/71 10/19/17 20:00 97.9 75 18 129/71 97 10/19/17 19:49 77 18 97 Nasal Cannula 2.0 28 10/19/17 19:38 28 10/19/17 19:37 77 18 97 Nasal Cannula 2.0 28 10/19/17 17:47 135/62 10/19/17 16:00 97.7 75 18 135/62 97 10/19/17 16:00 71 10/19/17 12:49 70 16 99 Nasal Cannula 2.0 28 10/19/17 12:43 70 16 96 Nasal Cannula 2.0 28 10/19/17 12:00 97.9 69 19 129/62 100 10/19/17 11:49 76 10/19/17 09:28 75 145/84 10/19/17 09:27 75 145/84 10/19/17 09:26 145/84 10/19/17 07:55 74 10/19/17 07:10 76 16 99 Nasal Cannula 2.0 28 10/19/17 07:03 74 16 97 Nasal Cannula 2.0 28 10/19/17 04:00 68 10/19/17 04:00 96.1 70 18 131/71 95 Nasal Cannula 3.0 10/19/17 01:09 97.5 10/19/17 01:00 69 18 99 Nasal Cannula 2.0 28 10/19/17 00:45 68 19 99 Nasal Cannula 2.0 28 10/19/17 00:00 67 10/19/17 00:00 97.2 76 18 125/61 95 Nasal Cannula 3.0 Intake and Output 10/18/17 10/19/17 19:00 07:00 Intake Total 920 ml 70 ml Balance 920 ml 70 ml Intake Oral 720 ml 70 ml IV Total 200 ml # Bowel Movements 1 Respiratory/Chest: rhonchi Cardiovascular: normal rate, regular rhythm Abdomen: normal bowel sounds, no organomegaly Extremities: no cyanosis, no clubbing Neurologic/Psychiatric: responsive, disoriented Microbiology Date/Time Source Procedure Growth Status 10/17/17 18:40 Urine,Clean Catch Urine Culture - Preliminary Resulted 10/17/17 18:40 Straight Cath Urine Culture - Preliminary Mixed Gram Positive Organism Resulted Laboratory Tests 10/19/17 03:30: White Blood Count 9.7, Red Blood Count 2.77L, Hemoglobin 9.1L, Hematocrit 30.1L , Mean Corpuscular Volume 109H, Mean Corpuscular Hemoglobin 32.8H, Mean Corpuscular Hemoglobin Concent 30.1L, Red Cell Distribution Width 18.1H, Platelet Count 273, Mean Platelet Volume 6.1L, Neutrophils (%) (Auto) 60.4, Lymphocytes (%) (Auto) 25.4, Monocytes (%) (Auto) 10.5H, Eosinophils (%) (Auto) 3.1H, Basophils (%) (Auto) 0.6, Sodium Level 135L, Potassium Level 3.8, Chloride Level 99, Carbon Dioxide Level 27, Anion Gap 9, Blood Urea Nitrogen 27H , Creatinine 2.4H, Estimat Glomerular Filtration Rate 20.0, Glucose Level 118H, Uric Acid 4.1, Calcium Level 6.9L, Phosphorus Level 3.4, Magnesium Level 1.9, Total Bilirubin 0.3, Aspartate Amino Transf (AST/SGOT) 16, Alanine Aminotransferase (ALT/SGPT) < 6L, Alkaline Phosphatase 119H, C-Reactive Protein , Quantitative 11.5H, Pro-B-Type Natriuretic Peptide > 95009Q, Total Protein 5.7L, Albumin 1.3L, Globulin 4.4, Albumin/Globulin Ratio 0.3L Current Medications Medications (Trade) Dose Ordered Sig/Eli Route PRN Reason Start Time Stop Time Status Last Admin Dose Admin Acetaminophen (Tylenol) 650 mg Q4H PRN ORAL Mild Pain (Pain Scale 1-3) 10/16/17 00:00 11/15/17 00:00 10/19/17 12:37 Acetaminophen (Tylenol) 650 mg Q4H PRN RECTAL fever 10/16/17 00:00 11/15/17 00:00 Amlodipine Besylate (Norvasc) 5 mg DAILY ORAL 10/20/17 09:00 11/15/17 13:29 Apixaban (Eliquis) 5 mg BID ORAL 10/16/17 18:00 11/15/17 17:59 10/19/17 17:48 Aspirin (Ecotrin) 81 mg DAILY ORAL 10/16/17 13:30 11/15/17 13:29 10/19/17 09:27 Carvedilol (Coreg) 3.125 mg EVERY 12 HOURS ORAL 10/16/17 13:30 11/15/17 13:29 10/19/17 21:33 Clotrimazole (Lotrimin) 1 applic EVERY 12 HOURS TOPIC 10/18/17 21:00 11/17/17 20:59 10/19/17 21:32 Dextrose (Dextrose 50%) STAT PRN IV Hypoglycemia 10/16/17 00:00 11/15/17 00:00 Docusate Sodium (Colace) 100 mg BID GT 10/19/17 18:00 11/18/17 17:59 Ipratropium [place] (Atrovent) 0.5 mcg Q4H PRN HHN Shortness of Breath 10/16/17 00:00 10/21/17 00:00 Ipratropium [place] (Atrovent) 0.5 mcg Q6HRT HHN 10/16/17 19:00 10/21/17 18:59 10/19/17 19:35 Lansoprazole (Prevacid) 30 mg DAILY ORAL 10/18/17 12:00 11/17/17 11:59 10/19/17 09:27 Levetiracetam (Keppra) 500 mg BID GT 10/16/17 13:30 11/15/17 13:29 10/19/17 17:47 Levothyroxine Sodium (Synthroid) 50 mcg DAILY@0630 ORAL 10/17/17 06:30 11/16/17 06:29 10/19/17 05:37 Lisinopril (Zestril) 2.5 mg BID ORAL 10/17/17 18:00 11/15/17 13:29 10/19/17 17:47 Ondansetron HCl (Zofran) 4 mg Q6H PRN IVP Nausea & Vomiting 10/16/17 00:00 11/15/17 00:00 Polyethylene Glycol (Miralax) 17 gm DAILYPRN PRN ORAL Constipation 10/16/17 00:00 11/15/17 00:00 Vitamin B Complex/ Vit C/Folic Acid (Nephrovite) 1 tab DAILY ORAL 10/16/17 13:30 11/15/17 13:29 10/19/17 09:33 JOSEPH LE DO Oct 19, 2017 21:37
[2017-10-20 00:47] VITALS: BP 140/69
[2017-10-20] MEDS: Ipratropium 0.02% Inh Soln 2.5ml UD HHN SCH ×4 (01:41→19:02)
[2017-10-20 04:00] VITALS: BP 136/75
[2017-10-20 04:57] LABS: BASOPHILS % (AUTO) 0.7 % (0.0-2.0); EOSINOPHILS % (AUTO) 3.5 % (0.0-3.0); HEMATOCRIT 32.7 % (37.0-47.0); HEMOGLOBIN 9.8 G/DL (12.0-16.0); LYMPHOCYTES % (AUTO) 23.3 % (20.0-45.0); MEAN CORPUSCULAR VOLUME 108 FL (80-99); MONOCYTES % (AUTO) 10.1 % (1.0-10.0); NEUTROPHILS % (AUTO) 62.4 % (45.0-75.0); PLATELET COUNT 315 K/UL (150-450); RED BLOOD COUNT 3.02 M/UL (4.20-5.40); RED CELL DISTRIBUTION WIDTH 17.5 % (11.6-14.8); WHITE BLOOD COUNT 9.7 K/UL (4.8-10.8)
[2017-10-20 05:45] LABS: ALANINE AMINOTRANSFERASE < 6 U/L (12-78); ALBUMIN 1.4 G/DL (3.4-5.0); ALBUMIN/GLOBULIN RATIO 0.3 (1.0-2.7); ALKALINE PHOSPHATASE 124 U/L (46-116); ANION GAP 9 mmol/L (5-15); ASPARTATE AMINO TRANSFERASE 11 U/L (15-37); BILIRUBIN,TOTAL 0.3 MG/DL (0.2-1.0); BLOOD UREA NITROGEN 34 mg/dL (7-18); CARBON DIOXIDE 25 MMOL/L (21-32); CHLORIDE 97 MMOL/L (98-107); CREATININE 2.7 MG/DL (0.55-1.30); PHOSPHORUS 3.5 MG/DL (2.5-4.9); SODIUM 131 MMOL/L (136-145)
[2017-10-20 08:00] VITALS: BP 147/77
[2017-10-20] MEDS: Eliquis 2.5mg tablet ORAL SCH ×2 (09:00→18:02)
[2017-10-20] MEDS: Aspirin EC 81mg tab ORAL SCH (09:00)
[2017-10-20] MEDS: Lisinopril 2.5mg tab ORAL SCH ×2 (09:10→18:00)
[2017-10-20] MEDS: Docusate 100mg/10ml Liq GT SCH ×2 (09:10→18:00)
[2017-10-20] MEDS: levETIRAcetam 500mg/5ml Liquid GT SCH ×2 (09:10→18:02)
[2017-10-20] MEDS: Nephrovite tab (Rena-Vite) ORAL SCH (09:10)
[2017-10-20 11:35] LABS: INR 1.1 (0.9-1.1)
[2017-10-20 12:00] VITALS: BP 154/87
--- NOTE | 2017-10-20 12:05 | Diagnostic Imaging Report ---
Indication: Dyspnea Technique: XRAY Chest 1v Comparison: 10/18/2017 Findings: Patient rotated to the right. Stable cardiomegaly. Persistent interstitial opacification/edema although slightly decreased from the prior exam. Interval worsening of aeration with increasing right mid/lower lung opacification. Persistent layering right pleural effusion. No definite pneumothorax. No acute osseous abnormality seen. Impression: Slight interval worsening of aeration of the right mid and lower lungs compared to the prior exam. Persistent layering right-sided pleural effusion.
--- NOTE | 2017-10-20 12:58 | Pulmonology Progress Note ---
Assessment/Plan Problems: (1) Acute hypercapnic respiratory failure (2) Pleural effusion (3) ESRD (end stage renal disease) on dialysis (4) Altered level of consciousness (5) Edema Respiratory: monitor respiratory rate, other - f/u pleural fluid analysis Cardiac: continue to monitor HR/BP Renal: F/U I&O, keep IV fluid Gastrointestinal: continue feedings/current rate Endocrine: continue sliding scale insulin Hematologic: monitor H/H, transfuse if hgb<8.5 Neurologic: keep patient comfortable Prophylaxis: Protonix Notes Reviewed: cardio Discussed with: nurses, consultants, case specialist Subjective ROS Limited/Unobtainable: Yes Interval Events: less short of breath, thoracentesis being done Constitutional: Reports: no symptoms Allergies: Coded Allergies: SULFA (SULFONAMIDE ANTIBIOTICS) (Verified Allergy, Unknown, 10/06/11) Uncoded Allergies: SULFA (Allergy, Unknown, 10/15/17) Objective Last 24 Hour Vital Signs Date Time Temp Pulse Resp B/P (MAP) Pulse Ox O2 Delivery O2 Flow Rate FiO2 10/20/17 12:00 78 10/20/17 12:00 96.4 106 17 154/87 95 Nasal Cannula 3.0 10/20/17 09:11 78 147/77 10/20/17 09:11 78 147/77 10/20/17 09:10 147/77 10/20/17 08:00 84 10/20/17 08:00 96.8 78 18 147/77 98 Nasal Cannula 3.0 10/20/17 07:39 79 20 97 Nasal Cannula 2.0 28 10/20/17 07:21 81 18 99 Nasal Cannula 2.0 28 10/20/17 06:59 98.4 10/20/17 04:00 98.4 70 19 136/75 96 10/20/17 04:00 75 10/20/17 01:45 80 18 96 Nasal Cannula 2.0 28 10/20/17 01:40 28 10/20/17 01:39 80 18 96 Nasal Cannula 2.0 28 10/20/17 00:47 98.6 78 18 140/69 96 10/20/17 00:00 71 10/19/17 21:33 75 129/71 10/19/17 20:00 97.9 75 18 129/71 97 10/19/17 20:00 71 10/19/17 19:49 77 18 97 Nasal Cannula 2.0 28 10/19/17 19:38 28 10/19/17 19:37 77 18 97 Nasal Cannula 2.0 28 10/19/17 17:47 135/62 10/19/17 16:00 97.7 75 18 135/62 97 10/19/17 16:00 71 Intake and Output 10/19/17 10/20/17 19:00 07:00 Intake Total 440 ml 360 ml Balance 440 ml 360 ml Intake Oral 440 ml 360 ml # Bowel Movements 1 General Appearance: WD/WN HEENT: normocephalic, atraumatic Respiratory/Chest: chest wall non-tender, lungs clear Breasts: no masses Cardiovascular: normal peripheral pulses, normal rate Abdomen: normal bowel sounds, soft, non tender Genitourinary: normal external genitalia Skin: no rash Neurologic/Psychiatric: anger control counselor II-XII grossly normal Lymphatic: no neck adenopathy Microbiology Date/Time Source Procedure Growth Status 10/17/17 18:40 Urine,Clean Catch Urine Culture - Preliminary Mixed Gram Positive Organism Resulted 10/17/17 18:40 Straight Cath Urine Culture - Final Mixed Gram Positive Organism Complete Laboratory Tests 10/20/17 03:45: White Blood Count 9.7, Red Blood Count 3.02L, Hemoglobin 9.8L, Hematocrit 32.7L , Mean Corpuscular Volume 108H, Mean Corpuscular Hemoglobin 32.3H, Mean Corpuscular Hemoglobin Concent 29.9L, Red Cell Distribution Width 17.5H, Platelet Count 315, Mean Platelet Volume 6.0L, Neutrophils (%) (Auto) 62.4, Lymphocytes (%) (Auto) 23.3, Monocytes (%) (Auto) 10.1H, Eosinophils (%) (Auto) 3.5H, Basophils (%) (Auto) 0.7, Sodium Level 131L, Potassium Level 4.0, Chloride Level 97L, Carbon Dioxide Level 25, Anion Gap 9, Blood Urea Nitrogen 34H, Creatinine 2.7H, Estimat Glomerular Filtration Rate 17.4, Glucose Level 116H, Uric Acid 4.6, Calcium Level 7.0L, Phosphorus Level 3.5, Magnesium Level 1.9, Total Bilirubin 0.3, Aspartate Amino Transf (AST/SGOT) 11L, Alanine Aminotransferase (ALT/SGPT) < 6L, Alkaline Phosphatase 124H, Troponin I 0.009, C -Reactive Protein, Quantitative 8.3H, Pro-B-Type Natriuretic Peptide > 63526P, Total Protein 5.8L, Albumin 1.4L, Globulin 4.4, Albumin/Globulin Ratio 0.3L 10/20/17 11:05: Prothrombin Time 11.5, Prothromb Time International Ratio 1.1, Activated Partial Thromboplast Time 43H Current Medications Medications (Trade) Dose Ordered Sig/Eli Route PRN Reason Start Time Stop Time Status Last Admin Dose Admin Acetaminophen (Tylenol) 650 mg Q4H PRN ORAL Mild Pain (Pain Scale 1-3) 10/16/17 00:00 11/15/17 00:00 10/20/17 12:09 Acetaminophen (Tylenol) 650 mg Q4H PRN RECTAL fever 10/16/17 00:00 11/15/17 00:00 Amlodipine Besylate (Norvasc) 5 mg DAILY ORAL 10/20/17 09:00 11/15/17 13:29 10/20/17 09:11 Apixaban (Eliquis) 5 mg BID ORAL 10/16/17 18:00 11/15/17 17:59 10/19/17 17:48 Aspirin (Ecotrin) 81 mg DAILY ORAL 10/16/17 13:30 11/15/17 13:29 10/19/17 09:27 Carvedilol (Coreg) 3.125 mg EVERY 12 HOURS ORAL 10/16/17 13:30 11/15/17 13:29 10/20/17 09:11 Clotrimazole (Lotrimin) 1 applic EVERY 12 HOURS TOPIC 10/18/17 21:00 11/17/17 20:59 10/20/17 09:13 Dextrose (Dextrose 50%) STAT PRN IV Hypoglycemia 10/16/17 00:00 11/15/17 00:00 Docusate Sodium (Colace) 100 mg BID GT 10/19/17 18:00 11/18/17 17:59 10/20/17 09:10 Ipratropium [place] (Atrovent) 0.5 mcg Q4H PRN HHN Shortness of Breath 10/16/17 00:00 10/21/17 00:00 Ipratropium [place] (Atrovent) 0.5 mcg Q6HRT HHN 10/16/17 19:00 10/21/17 18:59 10/20/17 07:20 Lansoprazole (Prevacid) 30 mg DAILY ORAL 10/18/17 12:00 11/17/17 11:59 10/20/17 09:10 Levetiracetam (Keppra) 500 mg BID GT 10/16/17 13:30 11/15/17 13:29 10/20/17 09:10 Levothyroxine Sodium (Synthroid) 50 mcg DAILY@0630 ORAL 10/17/17 06:30 11/16/17 06:29 10/20/17 06:00 Lisinopril (Zestril) 2.5 mg BID ORAL 10/17/17 18:00 11/15/17 13:29 10/20/17 09:10 Ondansetron HCl (Zofran) 4 mg Q6H PRN IVP Nausea & Vomiting 10/16/17 00:00 11/15/17 00:00 Polyethylene Glycol (Miralax) 17 gm DAILYPRN PRN ORAL Constipation 10/16/17 00:00 11/15/17 00:00 Vitamin B Complex/ Vit C/Folic Acid (Nephrovite) 1 tab DAILY ORAL 10/16/17 13:30 11/15/17 13:29 10/20/17 09:10 RIC HOWELL Oct 20, 2017 12:58
--- NOTE | 2017-10-20 13:46 | Pre-Procedure Note/Attestation ---
Pre-Procedure Note/Attestation Complete Prior to Procedure Planned Procedure: right Procedure Narrative: US guided right thoracentesis Indications for Procedure Pre-Operative Diagnosis: pleural effusion Attestation I attest that I discussed the nature of the procedure; its benefits; risks and complications; and alternatives (and the risks and benefits of such alternatives ), prior to the procedure, with the patient (or the patient's legal claim service representative). I attest that, if there was a reasonable possibility of needing a blood transfusion, the patient (or the patient's legal claim service representative) was given the [facility] standardized written summary, pursuant to the Herve Alyssa Blood Safety Act ([place] Health and Safety Code # 1645, as amended). I attest that I re-evaluated the patient just prior to the surgery and that there has been no change in the patient's H&P, except as documented below: Jamie Ojeda M.D. Oct 20, 2017 13:46
--- NOTE | 2017-10-20 13:48 | Operative Note - PDOC ---
Operative Note Operative Note Date of Operation/Procedure: Oct 20, 2017 Pre-op Diagnosis: pleural effusion Procedure: US guided thoracentesis - right Post-op Diagnosis: pleural effusion Post-op Diagnosis: same as pre-op Surgeon: Jamie Ojeda Anesthesia: local Specimen: yes Complications: none Condition: stable Estimated Blood Loss: none Drains: none Implant(s) used?: No Indications for Procedure Pleural effusion on right Description of Procedure Informed consent obtained. Area prepped and drapped in sterile manner. Time- out performed. Access into right pleural space obtained under US. Approx 1.1L of fluid removed, with specimen sent for requested laboratory studies. Jamie Ojeda M.D. Oct 20, 2017 13:48
--- NOTE | 2017-10-20 15:34 | Nephrology Progress Note ---
Assessment/Plan Problem List: (1) ESRD (end stage renal disease) on dialysis (2) Acute on chronic diastolic heart failure (3) Acute hypercapnic respiratory failure (4) Acute toxic metabolic encephalopathy Assessment ESRD CHF, Pleural effusion Anemia of CKD DM Encephalopathy HypoAlbuminemai Sz disorder HypoThyroidism Plan Plan: flomax for 150 cc urine retention Follow up Echo HD next 10/20/17 Adjust BP and BS optimize cardiac status check UA and c/s Mag and Phos supplement per orders Subjective ROS Limited/Unobtainable: No Objective Objective Last 24 Hour Vital Signs Date Time Temp Pulse Resp B/P (MAP) Pulse Ox O2 Delivery O2 Flow Rate FiO2 10/20/17 12:00 78 10/20/17 12:00 96.4 106 17 154/87 95 Nasal Cannula 3.0 10/20/17 09:11 78 147/77 10/20/17 09:11 78 147/77 10/20/17 09:10 147/77 10/20/17 08:00 84 10/20/17 08:00 96.8 78 18 147/77 98 Nasal Cannula 3.0 10/20/17 07:39 79 20 97 Nasal Cannula 2.0 28 10/20/17 07:21 81 18 99 Nasal Cannula 2.0 28 10/20/17 06:59 98.4 10/20/17 04:00 98.4 70 19 136/75 96 10/20/17 04:00 75 10/20/17 01:45 80 18 96 Nasal Cannula 2.0 28 10/20/17 01:40 28 10/20/17 01:39 80 18 96 Nasal Cannula 2.0 28 10/20/17 00:47 98.6 78 18 140/69 96 10/20/17 00:00 71 10/19/17 21:33 75 129/71 10/19/17 20:00 97.9 75 18 129/71 97 10/19/17 20:00 71 10/19/17 19:49 77 18 97 Nasal Cannula 2.0 28 10/19/17 19:38 28 10/19/17 19:37 77 18 97 Nasal Cannula 2.0 28 10/19/17 17:47 135/62 10/19/17 16:00 97.7 75 18 135/62 97 10/19/17 16:00 71 Intake and Output 10/19/17 10/20/17 19:00 07:00 Intake Total 440 ml 360 ml Balance 440 ml 360 ml Intake Oral 440 ml 360 ml # Bowel Movements 1 Laboratory Tests 10/20/17 03:45: White Blood Count 9.7, Red Blood Count 3.02L, Hemoglobin 9.8L, Hematocrit 32.7L , Mean Corpuscular Volume 108H, Mean Corpuscular Hemoglobin 32.3H, Mean Corpuscular Hemoglobin Concent 29.9L, Red Cell Distribution Width 17.5H, Platelet Count 315, Mean Platelet Volume 6.0L, Neutrophils (%) (Auto) 62.4, Lymphocytes (%) (Auto) 23.3, Monocytes (%) (Auto) 10.1H, Eosinophils (%) (Auto) 3.5H, Basophils (%) (Auto) 0.7, Sodium Level 131L, Potassium Level 4.0, Chloride Level 97L, Carbon Dioxide Level 25, Anion Gap 9, Blood Urea Nitrogen 34H, Creatinine 2.7H, Estimat Glomerular Filtration Rate 17.4, Glucose Level 116H, Uric Acid 4.6, Calcium Level 7.0L, Phosphorus Level 3.5, Magnesium Level 1.9, Total Bilirubin 0.3, Aspartate Amino Transf (AST/SGOT) 11L, Alanine Aminotransferase (ALT/SGPT) < 6L, Alkaline Phosphatase 124H, Troponin I 0.009, C -Reactive Protein, Quantitative 8.3H, Pro-B-Type Natriuretic Peptide > 44383N, Total Protein 5.8L, Albumin 1.4L, Globulin 4.4, Albumin/Globulin Ratio 0.3L 10/20/17 11:05: Prothrombin Time 11.5, Prothromb Time International Ratio 1.1, Activated Partial Thromboplast Time 43H 10/20/17 13:30: Body Fluid Source Thoracentesis, Body Fluid Volume 60, Body Fluid Appearance Clear, Body Fluid RBC 4010, Body Fluid Total Nucleated Cells 195, Body Fluid Polynuclear WBCs (%) 3, Body Fluid Mononuclear WBCs (%) 90, Body Fluid Mesothelial Cells (%) 7, Body Fluid Glucose [Pending], Body Fluid Total Protein [Pending], Body Fluid Albumin [Pending] Height (Feet): 5 Height (Inches): 4.00 Weight (Pounds): 165 General Appearance: no apparent distress, lethargic Cardiovascular: other - variable rate Respiratory/Chest: decreased breath sounds Abdomen: soft, distended Objective no other change DEBRA FERNANDES Oct 20, 2017 15:34
[2017-10-20 16:00] VITALS: BP 125/62
--- NOTE | 2017-10-20 16:45 | Diagnostic Imaging Report ---
Indications: Pleural effusion Technique: Ultrasound used to localize optimal puncture site. Sterile prepping and draping right chest. Local anesthesia with 1% lidocaine. Under real-time ultrasound guidance, puncture pleural space using thoracentesis needle. Stylet removed. Catheter placed to vacuum bottle suction. Total approximately 1100 milliliters of fluid aspirated. Patient tolerated procedure well, without immediate complication. Findings: Followup sonography demonstrates near complete resolution of pleural fluid. Impression: Successful ultrasound-guided thoracentesis, yielding 1100 milliliters of fluid. Follow-up chest x-ray ordered.
--- NOTE | 2017-10-20 17:38 | General Progress Note ---
Assessment/Plan Problem List: (1) Small pneumothorax (2) Acute on chronic diastolic heart failure (3) Acute toxic metabolic encephalopathy (4) Acute hypercapnic respiratory failure ICD Codes: J96.02 - Acute respiratory failure with hypercapnia SNOMED: 143193338 (5) ESRD (end stage renal disease) on dialysis ICD Codes: N18.6 - End stage renal disease; Z99.2 - Dependence on renal dialysis SNOMED: 604683763 (6) Moderate R pleural effusion Status: stable Assessment/Plan Pulm consulted BIPAP qHS and PRN Trend ABG Thoracentesis ordered for R pleural effusion--1.1L removed on 10/20/16. Procedure complicated by small pneumothorax. Cont O2, serial CXRs Renal consulted Cont HD per renal for volume removal. Last HD 10/17 AM. Getting HD today Trend BMP Strict I/O's, daily weights Cont home meds Pain control, supportive care, bowel regimen Possible d/c tomorrow if pneumothorax improved/stable on CXR DVT Prophylaxis: SCD, Eliquis Code Status: Full Hospital Classification Declaration: Based on this initial evaluation, and depending on the patient's clinical course, I anticipate that this patient will require hospitalization for 1-2 days for AMS, CHF and close respiratory/ hemodynamic monitoring. Disposition: Once the patient is stable to leave the hospital, I anticipate the patient will likely be discharged to the following environment: home with HH vs SNF Discussed with patient/family, nursing staff, SW/CM, pulm, renal, regarding clinical status, treatment course, and disposition planning. D/w renal re volume removal w/ HD. D/w pulm re thoracentesis, pneumothorax Time of note may not reflect time of encounter. Subjective Date patient seen: Oct 20, 2017 Time patient seen: 15:00 ROS Limited/Unobtainable: Yes Constitutional: Reports: no symptoms HEENT: Reports: no symptoms Cardiovascular: Reports: no symptoms Respiratory: Reports: shortness of breath Gastrointestinal/Abdominal: Reports: no symptoms Genitourinary: Reports: no symptoms Neurologic/Psychiatric: Reports: no symptoms Endocrine: Reports: no symptoms Hematologic/Lymphatic: Reports: no symptoms Allergies: Coded Allergies: SULFA (SULFONAMIDE ANTIBIOTICS) (Verified Allergy, Unknown, 10/06/11) Uncoded Allergies: SULFA (Allergy, Unknown, 10/15/17) All Systems: reviewed and negative except above Subjective No acute o/n events s/ thoracentesis of R pleural effusion today w/ 1.1L out. Had small pneumothorax post-procedure Pt HDS, on NC SOB stable Denies chest pain, f/c, n/v/d/c, abd pain Objective Last 24 Hour Vital Signs Date Time Temp Pulse Resp B/P (MAP) Pulse Ox O2 Delivery O2 Flow Rate FiO2 10/20/17 16:00 97.4 74 21 125/62 96 Nasal Cannula 3.0 10/20/17 16:00 72 10/20/17 13:21 78 20 97 Nasal Cannula 2.0 28 10/20/17 13:10 98 20 97 Nasal Cannula 2.0 28 10/20/17 12:00 78 10/20/17 12:00 96.4 106 17 154/87 95 Nasal Cannula 3.0 10/20/17 09:11 78 147/77 10/20/17 09:11 78 147/77 10/20/17 09:10 147/77 10/20/17 08:00 84 10/20/17 08:00 96.8 78 18 147/77 98 Nasal Cannula 3.0 10/20/17 07:39 79 20 97 Nasal Cannula 2.0 28 10/20/17 07:21 81 18 99 Nasal Cannula 2.0 10/20/17 06:59 98.4 10/20/17 04:00 98.4 70 19 136/75 96 10/20/17 04:00 75 10/20/17 01:45 80 18 96 Nasal Cannula 2.0 28 10/20/17 01:40 28 10/20/17 01:39 80 18 96 Nasal Cannula 2.0 10/20/17 00:47 98.6 78 18 140/69 96 10/20/17 00:00 71 10/19/17 21:33 75 129/71 10/19/17 20:00 97.9 75 18 129/71 97 10/19/17 20:00 71 10/19/17 19:49 77 18 97 Nasal Cannula 2.0 28 10/19/17 19:38 28 10/19/17 19:37 77 18 97 Nasal Cannula 2.0 28 10/19/17 17:47 135/62 Intake and Output 10/19/17 10/20/17 19:00 07:00 Intake Total 440 ml 360 ml Balance 440 ml 360 ml Intake Oral 440 ml 360 ml # Bowel Movements 1 Laboratory Tests 10/20/17 03:45: White Blood Count 9.7, Red Blood Count 3.02L, Hemoglobin 9.8L, Hematocrit 32.7L , Mean Corpuscular Volume 108H, Mean Corpuscular Hemoglobin 32.3H, Mean Corpuscular Hemoglobin Concent 29.9L, Red Cell Distribution Width 17.5H, Platelet Count 315, Mean Platelet Volume 6.0L, Neutrophils (%) (Auto) 62.4, Lymphocytes (%) (Auto) 23.3, Monocytes (%) (Auto) 10.1H, Eosinophils (%) (Auto) 3.5H, Basophils (%) (Auto) 0.7, Sodium Level 131L, Potassium Level 4.0, Chloride Level 97L, Carbon Dioxide Level 25, Anion Gap 9, Blood Urea Nitrogen 34H, Creatinine 2.7H, Estimat Glomerular Filtration Rate 17.4, Glucose Level 116H, Uric Acid 4.6, Calcium Level 7.0L, Phosphorus Level 3.5, Magnesium Level 1.9, Total Bilirubin 0.3, Aspartate Amino Transf (AST/SGOT) 11L, Alanine Aminotransferase (ALT/SGPT) < 6L, Alkaline Phosphatase 124H, Troponin I 0.009, C -Reactive Protein, Quantitative 8.3H, Pro-B-Type Natriuretic Peptide > 02091H, Total Protein 5.8L, Albumin 1.4L, Globulin 4.4, Albumin/Globulin Ratio 0.3L 10/20/17 11:05: Prothrombin Time 11.5, Prothromb Time International Ratio 1.1, Activated Partial Thromboplast Time 43H 10/20/17 13:30: Body Fluid Source Thoracentesis, Body Fluid Volume 60, Body Fluid Appearance Clear, Body Fluid RBC 4010, Body Fluid Total Nucleated Cells 195, Body Fluid Polynuclear WBCs (%) 3, Body Fluid Mononuclear WBCs (%) 90, Body Fluid Mesothelial Cells (%) 7, Body Fluid Glucose [Pending], Body Fluid Total Protein [Pending], Body Fluid Albumin [Pending] Height (Feet): 5 Height (Inches): 4.00 Weight (Pounds): 165 Objective General: alert, cooperative, no distress, appears stated age Head: normocephalic, without obvious abnormality, atraumatic Eyes: conjunctivae/corneas clear. PERRL, EOM's intact Throat: lips, mucosa, and tongue normal. MMM Neck: supple, symmetrical, trachea midline, and +JVD Lungs: +crackles b/l Heart: regular rate and rhythm, S1, S2 normal, no murmur, click, rub or gallop Abdomen: soft, non-tender, non-distended, bowel sounds normal; no masses or organomegaly Extremities: extremities normal, atraumatic, no cyanosis, 2+ pitting edema Pulses: 2+ and symmetric Skin: skin color, texture, turgor normal; no rashes or lesions Neurologic: grossly normal, no focal deficits Annalise Marinelli M.D. Oct 20, 2017 17:38
[2017-10-20] MEDS ORDERED: FLOMAX0.4 MG ORAL (18:19)
[2017-10-20 20:00] VITALS: BP 113/55
[2017-10-20] MEDS ORDERED: Tamsulosin 0.4mg cap ORAL SCH (21:00)
[2017-10-21] VITALS: BP 124/62
[2017-10-21] MEDS: Ipratropium 0.02% Inh Soln 2.5ml UD HHN SCH ×3 (00:56→12:56)
[2017-10-21 04:00] VITALS: BP 138/64
[2017-10-21 08:00] VITALS: BP 130/64
[2017-10-21] MEDS: Nephrovite tab (Rena-Vite) ORAL SCH (09:14)
[2017-10-21] MEDS: Docusate 100mg/10ml Liq GT SCH (09:14)
[2017-10-21] MEDS: Eliquis 2.5mg tablet ORAL SCH (09:15)
[2017-10-21] MEDS: Aspirin EC 81mg tab ORAL SCH (09:15)
[2017-10-21] MEDS: levETIRAcetam 500mg/5ml Liquid GT SCH (09:16)
[2017-10-21] MEDS: Lisinopril 2.5mg tab ORAL SCH (09:19)
[2017-10-21 11:40] LABS: BASOPHILS % (AUTO) 0.6 % (0.0-2.0); EOSINOPHILS % (AUTO) 2.6 % (0.0-3.0); HEMATOCRIT 32.2 % (37.0-47.0); HEMOGLOBIN 9.6 G/DL (12.0-16.0); LYMPHOCYTES % (AUTO) 16.2 % (20.0-45.0); MEAN CORPUSCULAR VOLUME 110 FL (80-99); MONOCYTES % (AUTO) 11.9 % (1.0-10.0); NEUTROPHILS % (AUTO) 68.7 % (45.0-75.0); PLATELET COUNT 255 K/UL (150-450); RED BLOOD COUNT 2.93 M/UL (4.20-5.40); WHITE BLOOD COUNT 7.1 K/UL (4.8-10.8)
[2017-10-21 11:43] LABS: ANION GAP 8 mmol/L (5-15); BLOOD UREA NITROGEN 28 mg/dL (7-18); CALCIUM 6.8 MG/DL (8.5-10.1); CARBON DIOXIDE 29 MMOL/L (21-32); CHLORIDE 98 MMOL/L (98-107); CREATININE 2.4 MG/DL (0.55-1.30); POTASSIUM 3.5 MMOL/L (3.5-5.1); SODIUM 135 MMOL/L (136-145)
[2017-10-21 11:49] LABS: ALANINE AMINOTRANSFERASE < 6 U/L (12-78); ALBUMIN 1.3 G/DL (3.4-5.0); ALBUMIN/GLOBULIN RATIO 0.3 (1.0-2.7); ALKALINE PHOSPHATASE 123 U/L (46-116); ASPARTATE AMINO TRANSFERASE 11 U/L (15-37); BILIRUBIN,TOTAL 0.4 MG/DL (0.2-1.0); PHOSPHORUS 3.4 MG/DL (2.5-4.9)
[2017-10-21 12:00] VITALS: BP 117/57
--- NOTE | 2017-10-21 12:05 | Diagnostic Imaging Report ---
Indication: Status post thoracentesis Technique: CHEST 1 VIEW Comparison: Earlier the same day Findings: Interval right-sided thoracentesis with near complete resolution of previously seen right-sided pleural effusion. There is a tiny apical right-sided pneumothorax. Additional findings are unchanged. Impression: Status post right-sided thoracentesis with near complete resolution of right-sided pleural effusion. Tiny apical pneumothorax status post thoracentesis. Recommend short term interval repeat chest x-ray to assess for stability. If patient becomes symptomatic or if pneumothorax increases, may need chest tube placement. Findings discussed with patient's treating nurse via telephone conversation approximately 16:00 on 10/20/17.
--- NOTE | 2017-10-21 12:35 | Pulmonology Progress Note ---
Assessment/Plan Problems: (1) Acute hypercapnic respiratory failure (2) Pleural effusion (3) ESRD (end stage renal disease) on dialysis (4) Altered level of consciousness (5) Edema Assessment/Plan tolerated thoracentesis might go to med/surg check electrolytes pt/ot dc planning. Subjective ROS Limited/Unobtainable: No Interval Events: one liter removed by thoracentesis, Constitutional: Reports: no symptoms HEENT: Repors: no symptoms Allergies: Coded Allergies: SULFA (SULFONAMIDE ANTIBIOTICS) (Verified Allergy, Unknown, 10/06/11) Uncoded Allergies: SULFA (Allergy, Unknown, 10/15/17) Objective Last 24 Hour Vital Signs Date Time Temp Pulse Resp B/P (MAP) Pulse Ox O2 Delivery O2 Flow Rate FiO2 10/21/17 09:19 138/64 10/21/17 09:19 76 138/64 10/21/17 09:14 76 138/64 10/21/17 08:06 76 20 99 Nasal Cannula 2.0 28 10/21/17 08:00 77 10/21/17 08:00 97.7 75 18 130/64 100 Nasal Cannula 3.0 10/21/17 07:50 75 20 97 Nasal Cannula 2.0 28 10/21/17 04:00 80 10/21/17 04:00 97.6 86 18 138/64 97 Nasal Cannula 3.0 10/21/17 00:58 Nasal Cannula 2.0 28 10/21/17 00:57 Nasal Cannula 2.0 28 10/21/17 00:00 79 10/21/17 00:00 97.3 79 18 124/62 99 Nasal Cannula 3.0 10/20/17 20:40 79 113/55 10/20/17 20:00 97.3 79 18 113/55 99 Nasal Cannula 3.0 10/20/17 20:00 81 10/20/17 19:03 84 20 99 Nasal Cannula 2.0 28 10/20/17 18:55 89 20 97 Nasal Cannula 2.0 28 10/20/17 18:33 Nasal Cannula 3.0 28 10/20/17 18:00 125/62 10/20/17 16:00 97.4 74 21 125/62 96 Nasal Cannula 3.0 10/20/17 16:00 72 10/20/17 14:55 Nasal Cannula 2.0 28 10/20/17 13:21 78 20 97 Nasal Cannula 2.0 28 10/20/17 13:10 98 20 97 Nasal Cannula 2.0 28 Intake and Output 10/20/17 10/21/17 19:00 07:00 Intake Total 300 ml Output Total 2100 ml Balance -1800 ml Intake Oral 300 ml Hemodialysis UF 2100 ml Bladder Scan Volume Amount 115 # Voids 1 # Bowel Movements 2 General Appearance: WD/WN HEENT: normocephalic, atraumatic Respiratory/Chest: chest wall non-tender, lungs clear Cardiovascular: normal peripheral pulses, normal rate Abdomen: normal bowel sounds, soft, non tender Genitourinary: normal external genitalia Skin: no rash Neurologic/Psychiatric: cad technician II-XII grossly normal Microbiology Date/Time Source Procedure Growth Status 10/20/17 13:30 Ascities Fluid Gram Stain - Final Resulted 10/20/17 13:30 Ascities Fluid Body Fluid Culture - Preliminary NO GROWTH AFTER 24 HOURS Resulted Laboratory Tests 10/20/17 13:30: Body Fluid Source Thoracentesis, Body Fluid Volume 60, Body Fluid Appearance Clear, Body Fluid RBC 4010, Body Fluid Total Nucleated Cells 195, Body Fluid Polynuclear WBCs (%) 3, Body Fluid Mononuclear WBCs (%) 90, Body Fluid Mesothelial Cells (%) 7, Body Fluid Glucose 100, Body Fluid Total Protein 2.9, Body Fluid Albumin 1.2 10/21/17 10:30: White Blood Count 7.1, Red Blood Count 2.93L, Hemoglobin 9.6L, Hematocrit 32.2L , Mean Corpuscular Volume 110H, Mean Corpuscular Hemoglobin 32.9H, Mean Corpuscular Hemoglobin Concent 30.0L, Red Cell Distribution Width 18.0H, Platelet Count 255, Mean Platelet Volume 6.2L, Neutrophils (%) (Auto) 68.7, Lymphocytes (%) (Auto) 16.2L, Monocytes (%) (Auto) 11.9H, Eosinophils (%) (Auto ) 2.6, Basophils (%) (Auto) 0.6, Sodium Level 135L, Potassium Level 3.5, Chloride Level 98, Carbon Dioxide Level 29, Anion Gap 8, Blood Urea Nitrogen 28H , Creatinine 2.4H, Estimat Glomerular Filtration Rate 20.0, Glucose Level 96, Calcium Level 6.8L, Phosphorus Level 3.4, Magnesium Level 1.9, Total Bilirubin 0.4, Aspartate Amino Transf (AST/SGOT) 11L, Alanine Aminotransferase (ALT/SGPT) < 6L, Alkaline Phosphatase 123H, Total Protein 5.6L, Albumin 1.3L, Globulin 4.3 , Albumin/Globulin Ratio 0.3L Current Medications Medications (Trade) Dose Ordered Sig/Eli Route PRN Reason Start Time Stop Time Status Last Admin Dose Admin Acetaminophen (Tylenol) 650 mg Q4H PRN ORAL Mild Pain (Pain Scale 1-3) 10/16/17 00:00 11/15/17 00:00 10/21/17 04:07 Acetaminophen (Tylenol) 650 mg Q4H PRN RECTAL fever 10/16/17 00:00 11/15/17 00:00 Amlodipine Besylate (Norvasc) 5 mg DAILY ORAL 10/20/17 09:00 11/15/17 13:29 10/21/17 09:14 Apixaban (Eliquis) 5 mg BID ORAL 10/16/17 18:00 11/15/17 17:59 10/21/17 09:15 Aspirin (Ecotrin) 81 mg DAILY ORAL 10/16/17 13:30 11/15/17 13:29 10/21/17 09:15 Carvedilol (Coreg) 3.125 mg EVERY 12 HOURS ORAL 10/16/17 13:30 11/15/17 13:29 10/21/17 09:19 Clotrimazole (Lotrimin) 1 applic EVERY 12 HOURS TOPIC 10/18/17 21:00 11/17/17 20:59 10/21/17 09:15 Dextrose (Dextrose 50%) STAT PRN IV Hypoglycemia 10/16/17 00:00 11/15/17 00:00 Docusate Sodium (Colace) 100 mg BID GT 10/19/17 18:00 11/18/17 17:59 10/21/17 09:14 Ipratropium [place] (Atrovent) 0.5 mcg Q6HRT HHN 10/16/17 19:00 10/21/17 18:59 10/21/17 07:00 Lansoprazole (Prevacid) 30 mg DAILY ORAL 10/18/17 12:00 11/17/17 11:59 10/21/17 09:14 Levetiracetam (Keppra) 500 mg BID GT 10/16/17 13:30 11/15/17 13:29 10/21/17 09:16 Levothyroxine Sodium (Synthroid) 50 mcg DAILY@0630 ORAL 10/17/17 06:30 11/16/17 06:29 10/21/17 06:08 Lisinopril (Zestril) 5 mg BID ORAL 10/20/17 18:00 11/19/17 17:59 10/21/17 09:19 Ondansetron HCl (Zofran) 4 mg Q6H PRN IVP Nausea & Vomiting 10/16/17 00:00 11/15/17 00:00 Polyethylene Glycol (Miralax) 17 gm DAILYPRN PRN ORAL Constipation 10/16/17 00:00 11/15/17 00:00 Tamsulosin HCl (Flomax) 0.4 mg BEDTIME ORAL 10/20/17 21:00 11/19/17 20:59 10/20/17 20:40 Vitamin B Complex/ Vit C/Folic Acid (Nephrovite) 1 tab DAILY ORAL 10/16/17 13:30 11/15/17 13:29 10/21/17 09:14 RIC HOWELL Oct 21, 2017 12:35
--- NOTE | 2017-10-21 12:36 | Diagnostic Imaging Report ---
Indication: Cough Technique: One view of the chest Comparison: 10/20/2017 Findings: There is decreased hazy consolidation in the left lung. However, there is increased interstitial and hazy airspace consolidation in the right mid and lower lung. Previously demonstrated right apical postthoracentesis pneumothorax is no longer visible, except for questionably a sliver in the medial right lung apex. There is also increased pleural fluid on the right. The heart is borderline enlarged. Cholecystectomy clips are again noted Impression: Interim complete or near complete resolution of previously reported postthoracentesis small ex vacuo pneumothorax Increasing right mid and lower lung consolidation. Improving left lung consolidation Evidence of reaccumulating right pleural fluid
--- NOTE | 2017-10-21 14:14 | Nephrology Progress Note ---
Assessment/Plan Problem List: (1) ESRD (end stage renal disease) on dialysis (2) Acute on chronic diastolic heart failure (3) Acute hypercapnic respiratory failure (4) Acute toxic metabolic encephalopathy Assessment ESRD CHF, Pleural effusion Anemia of CKD DM Encephalopathy HypoAlbuminemai Sz disorder HypoThyroidism Plan Plan: Hd in am again if in house ? flomax for 150 cc urine retention Follow up Echo HD done 10/20/17 Adjust BP and BS optimize cardiac status check UA and c/s Mag and Phos supplement per orders Subjective ROS Limited/Unobtainable: No Constitutional: Reports: malaise Objective Objective Last 24 Hour Vital Signs Date Time Temp Pulse Resp B/P (MAP) Pulse Ox O2 Delivery O2 Flow Rate FiO2 10/21/17 13:28 80 20 99 Nasal Cannula 2.0 28 10/21/17 12:57 78 20 98 Nasal Cannula 2.0 28 10/21/17 09:19 138/64 10/21/17 09:19 76 138/64 10/21/17 09:14 76 138/64 10/21/17 08:06 76 20 99 Nasal Cannula 2.0 28 10/21/17 08:00 77 10/21/17 08:00 97.7 75 18 130/64 100 Nasal Cannula 3.0 10/21/17 07:50 75 20 97 Nasal Cannula 2.0 28 10/21/17 04:00 80 10/21/17 04:00 97.6 86 18 138/64 97 Nasal Cannula 3.0 10/21/17 00:58 Nasal Cannula 2.0 28 10/21/17 00:57 Nasal Cannula 2.0 28 10/21/17 00:00 79 10/21/17 00:00 97.3 79 18 124/62 99 Nasal Cannula 3.0 10/20/17 20:40 79 113/55 10/20/17 20:00 97.3 79 18 113/55 99 Nasal Cannula 3.0 10/20/17 20:00 81 10/20/17 19:03 84 20 99 Nasal Cannula 2.0 28 10/20/17 18:55 89 20 97 Nasal Cannula 2.0 28 10/20/17 18:33 Nasal Cannula 3.0 28 10/20/17 18:00 125/62 10/20/17 16:00 97.4 74 21 125/62 96 Nasal Cannula 3.0 10/20/17 16:00 72 10/20/17 14:55 Nasal Cannula 2.0 28 Intake and Output 10/20/17 10/21/17 19:00 07:00 Intake Total 300 ml Output Total 2100 ml Balance -1800 ml Intake Oral 300 ml Hemodialysis UF 2100 ml Bladder Scan Volume Amount 115 # Voids 1 # Bowel Movements 2 Laboratory Tests 10/21/17 10:30: White Blood Count 7.1, Red Blood Count 2.93L, Hemoglobin 9.6L, Hematocrit 32.2L , Mean Corpuscular Volume 110H, Mean Corpuscular Hemoglobin 32.9H, Mean Corpuscular Hemoglobin Concent 30.0L, Red Cell Distribution Width 18.0H, Platelet Count 255, Mean Platelet Volume 6.2L, Neutrophils (%) (Auto) 68.7, Lymphocytes (%) (Auto) 16.2L, Monocytes (%) (Auto) 11.9H, Eosinophils (%) (Auto ) 2.6, Basophils (%) (Auto) 0.6, Sodium Level 135L, Potassium Level 3.5, Chloride Level 98, Carbon Dioxide Level 29, Anion Gap 8, Blood Urea Nitrogen 28H , Creatinine 2.4H, Estimat Glomerular Filtration Rate 20.0, Glucose Level 96, Calcium Level 6.8L, Phosphorus Level 3.4, Magnesium Level 1.9, Total Bilirubin 0.4, Aspartate Amino Transf (AST/SGOT) 11L, Alanine Aminotransferase (ALT/SGPT) < 6L, Alkaline Phosphatase 123H, Total Protein 5.6L, Albumin 1.3L, Globulin 4.3 , Albumin/Globulin Ratio 0.3L Height (Feet): 5 Height (Inches): 4.00 Weight (Pounds): 171 General Appearance: no apparent distress Cardiovascular: regular rhythm Respiratory/Chest: decreased breath sounds Abdomen: soft Objective no other change DEBAR FERNANDES Oct 21, 2017 14:14
[2017-10-21 16:00] VITALS: BP 134/61
[2017-10-21] MEDS ORDERED: NS 500ML ONE (18:39)
[2017-10-21] MEDS ORDERED: 1/2 NS 1000ml IV ONE (18:39)
--- NOTE | 2017-10-21 19:12 | Cardiology Report ---
APPROVED REPORT EXAM: Two-dimensional and M-mode echocardiogram with Doppler and color Doppler. INDICATION Congestive Heart Failure M-Mode DIMENSIONS IVSd0.8 (0.7-1.1cm)Left Atrium (MM)3.8 (1.6-4.0cm) LVDd4.9 (3.5-5.6cm)Aortic Root2.5 (2.0-3.7cm) PWd1.0 (0.7-1.1cm)Aortic Cusp Exc.2.0 (1.5-2.0cm) LVDs3.1 (2.5-4.0cm) PWs1.2 cm Technically difficult study due to poor acoustical windows. Normal left ventricular chamber size, systolic function and wall motion. Left ventricular ejection fraction estimated to be 55-60%. No evidence of left ventricular hypertrophy. Small posterior pericardial effusion. Moderate left atrial enlargement by 2D. Mild right atrial enlargement by 2D. Focal aortic valve sclerosis with adequate cusp excursion. Thickened mitral valve leaflets with normal excursion. Mild mitral annulus and aortic root calcification. Pulmonic valve is well visualized. Normal tricuspid valve structure. IVC is normal in size and collapsible with respiration. A color flow and spectral Doppler study was performed and revealed: No aortic regurgitation. Trace mitral regurgitation. Mitral diastolic velocities suggest reduced left ventricular relaxation c/w diastolic dysfunction grade 1. Mild tricuspid regurgitation. Tricuspid systolic velocities suggests peak right ventricular systolic pressure of 43mmHg Consistent with mild pulmonary hypertension.
--- NOTE | 2017-10-22 13:10 | Diagnostic Imaging Report ---
APPROVED REPORT CPT Code: 14448 Present Symptoms Upper Extremity Pain: Left Upper Extremity Edema: Left Comments: Left hemodialysis arteriovenous fistula. R/O DVT. LEFT UPPER EXTREMITY: Imaging reveals patency of the arterio-venous fistula (brachial artery to basilic vein) at the upper arm level and at the antecubital fossa. The fistula was not accessible at the mid to distal brachial level due to dressings. Venous imaging reveals patency of the internal jugular, subclavian, axillary and brachial veins. The cephalic and basilic veins are also patent. Doppler indicates normal spontaneous flow within these venous segments.
--- NOTE | 2017-10-22 14:29 | Discharge Summary ---
Discharge Summary Hospital Course Date of Admission Oct 15, 2017 at 18:20 Date of Discharge Oct 21, 2017 at 18:40 Admitting Diagnosis AMS HPI 66 year old~female~with pmh of ERSD on HD, DM2 (A1C 5.2 on 03/2015), chronic diastolic heart failure, HTN, DM2, BLE DVT (on Eliquis), bipolar d/o, CVA, seizure d/o (on Keppra), bed-bound, multiple episodes of hypercapnic respiratory failure requiring intubation (most recently intubated 02/01/17) who presents with AMS and SOB. History limited as pt altered. Per , pt noted to be increasingly lethargic and more short of breath. noted low BPs at home. No reports of f/c, n/v, d/c, chest pain, abd pain. In ED, pt noted to be fluid overload w/ CXR showing pulmonary edema. ABG showed acute respiratory acidosis w/ pCO2 80s. Pt placed on BiPAP w/ some improvement. Renal consulted for HD. Consultations Pulmonology, Nephrology Procedures Thoracentesis of R pleural effusion on 10/20/17 w/ 1.1L removed Hospital Course Pt was admitted and continued on BiPAP. Nephrology was consulted and pt underwent hemodialysis for volume removal. BiPAP was weaned off. She had persistent R pleural effusion so she underwent thoracentesis w/ 1.1L removed. Procedure complicated by small pneumothorax, so pt was monitored for an additional day. She remained hemodynamically stable w/ improvement in respiratory status so she was discharged home with . Discharge physical exam: General: alert, cooperative, no distress, appears stated age Head: normocephalic, without obvious abnormality, atraumatic Eyes: conjunctivae/corneas clear. PERRL, EOM's intact Throat: lips, mucosa, and tongue normal. MMM Neck: supple, symmetrical, trachea midline, and no JVD Lungs: +mild b/l crackles at bases Heart: regular rate and rhythm, S1, S2 normal, no murmur, click, rub or gallop Abdomen: soft, non-tender, non-distended, bowel sounds normal Extremities: extremities normal, atraumatic, no cyanosis or edema Pulses: 2+ and symmetric Skin: skin color, texture, turgor normal; no rashes or lesions Neurologic: grossly normal, no focal deficits Discharge diagnoses: (1) Small pneumothorax (2) Acute on chronic diastolic heart failure (3) Acute toxic metabolic encephalopathy (4) Acute hypercapnic respiratory failure ICD Codes: J96.02 - Acute respiratory failure with hypercapnia SNOMED: [id number] (5) ESRD (end stage renal disease) on dialysis ICD Codes: N18.6 - End stage renal disease; Z99.2 - Dependence on renal dialysis SNOMED: [id number] (6) Moderate R pleural effusion Status: stable Discharge Medications New Medications: Tamsulosin HCl (Flomax) 0.4 Mg Cap.er.24h 0.4 MG ORAL BEDTIME for 90 Days, CAP Continued Medications: Amlodipine Besylate (Norvasc) 5 Mg Tablet 5 MG ORAL DAILY, TAB Apixaban (Eliquis) 5 Mg Tablet 5 MG PO BID, TAB Aspirin (Aspirin EC) 81 Mg Tablet.dr 81 MG ORAL DAILY, TAB Carvedilol (Coreg) 3.125 Mg Tablet 3.125 MG ORAL EVERY 12 HOURS, TAB Doxycycline Hyclate (Doxycycline Hyclate) 100 Mg Capsule 100 MG PO BID for 10 Days, CAP Ergocalciferol (Vitamin D2)* (Vitamin D*) 50,000 Unit Capsule [id number] UNIT ORAL ONCE A WEEK, CAP Hydroxyzine Hcl (Hydroxyzine Hcl) 25 Mg Tablet 25 MG PO PRN for Itching, TAB Iron Sucrose Complex (Venofer) 50 Mg/2.5 Ml Vial 50 MG IV, VIAL Levetiracetam In Nacl (Iso-Os) (Levetiraceta-Nacl 1,000 Mg/100) 1,000 Mg/100 Ml Piggyback 1000 MG IV DAILY, BAG Levetiracetam* (Levetiracetam*) 100 Mg/1 Ml Solution 500 MG GT BID Levetiracetam* (Levetiracetam*) 100 Mg/1 Ml Solution 500 MG GT BID Levothyroxine Sodium* (Levothyroxine Sodium) 200 Mcg Vial 50 MCG PO DAILY, VIAL Lisinopril* (Lisinopril*) 2.5 Mg Tablet 2.5 MG ORAL DAILY, TAB 0 Refills Melatonin (Melatonin) 1 Mg Tablet.er 1 MG PO, TAB Mupirocin (Mupirocin) 1 Gm Oin.pf.bubba 1 GM TP THREE TIMES A DAY Nitroglycerin (Nitro-Bid*) 1 Gm Oint...g. 1 INCH TOPIC, PKT 0 Refills Pravastatin Sod* (Pravastatin Sod*) 20 Mg Tablet 20 MG ORAL BEDTIME, TAB Quetiapine Fumarate (Seroquel) 50 Mg Tablet 50 MG ORAL TWICE A DAY, #15 TAB 0 Refills Trazodone Hcl* (Desyrel*) 50 Mg Tablet 50 MG ORAL BEDTIME, TAB Vitamin B Cmplx/Vit C/Folic AC (Nephro-Luz Tablet) 0.8 Mg Tablet 1 TAB ORAL DAILY, #30 TAB 0 Refills Discharge Condition Upon Discharge: stable Discharge Disposition Patient was discharged to Home with Home Health(06) Discharge Diagnoses: Annalise Marinelli M.D. Oct 22, 2017 14:29
--- NOTE | 2017-10-27 00:12 | Cardiology Report ---
APPROVED REPORT EKG Measurement Heart [id number] Normal sinus rhythm Possible Left atrial enlargement Anterior infarct, age undetermined Abnormal ECG
== END 2017-10-21 18:40 | disposition home health service (06) | DRG 291 ==
LOC: EDBD 17:28 → EMR 17:52 → 2W 18:20 → EDBEDREQ 18:29 → EDBEDREQSVC 18:29 → EDBEDREQ 10-16 15:26 → 2W 10-16 15:54
PROC: 5A09457 Assistance with Respiratory Ventilation, 24-96 Consecutive Hours, Continuous Positive Airway Pressure (ICD-10-PCS; principal; 2017-10-16)
PROC: 5A1D70Z Performance of Urinary Filtration, Intermittent, Less than 6 Hours Per Day (ICD-10-PCS; 2017-10-17)
PROC: 0W9930Z Drainage of Right Pleural Cavity with Drainage Device, Percutaneous Approach (ICD-10-PCS; 2017-10-20)
DX: I50.33 Acute on chronic diastolic (congestive) heart failure (principal); N18.6 End stage renal disease; J96.02 Acute respiratory failure with hypercapnia; G92 Toxic encephalopathy; E87.2 Acidosis; J90 Pleural effusion, not elsewhere classified; J95.811 Postprocedural pneumothorax; I12.0 Hypertensive chronic kidney disease with stage 5 chronic kidney disease or end stage renal disease; Z99.2 Dependence on renal dialysis; Y84.8 Other medical procedures as the cause of abnormal reaction of the patient, or of later complication, without mention of misadventure at the time of the procedure; Y92.238 Other place in hospital as the place of occurrence of the external cause; E11.22 Type 2 diabetes mellitus with diabetic chronic kidney disease; E88.09 Other disorders of plasma-protein metabolism, not elsewhere classified; D63.1 Anemia in chronic kidney disease; E03.9 Hypothyroidism, unspecified; F31.9 Bipolar disorder, unspecified; G40.909 Epilepsy, unspecified, not intractable, without status epilepticus
CPT/HCPCS: 36415; 36600; 70450; 71010; 71045; 80053; 80061; 81001; 82550; 82553; 82607; 82728; 82746; 82803; 82962; 82977; 83036; 83540; 83550; 83605; 83735; 83880; 84100; 84443; 84484; 84550; 85007; 85025; 85610; 85730; 86140; 87040; 87070; 87086; 87205; 88104; 89051; 93005; 93306; 93971; 94640; 94660; 94664; C9399